=== PATIENT | female | born 1935 | race African-American/Black ===

== ENCOUNTER → 2017-02-05 | Outpatient (CLI) | payer MEDICAID, MEDICARE ==
[~2017-02-05] VITALS: Ht 149.9 cm; Wt 62.6 kg
[~2017-02-05] MED LIST: REGADENOSON 0.4 MG/5 ML DISP.SYRIN. IV ONE
--- NOTE | 2017-02-05 14:08 | RAD ---
APPROVED REPORT Test Type: Pharmacological Stress Nurse/Tech: Marissa Bloom R.N. Test Indications: chest pain Cardiac History: Family history, Diabetes, Hypertension Medications: See Electronic Medical Record Medical History: See Electronic Medical Record Resting ECG: NSR Resting Heart Rate: 71 bpm Resting Blood Pressure: 149/62mmHg Pretest Chest Pain: No chest pain Nurse/Tech Notes Murmur, lungs sound clear Consent: The procedure was explained to the patient in lay terms. Informed consent was witnessed. Valentin eout was entered into [employer]. History and Stress Test performed by Marissa Bloom R.N. Pharm. Details Pharmacologic stress testing was performed using 0.4mg per 5ml of regadenoson given intravenously ove r 7-10 seconds. Stress Symptoms Dyspnea POST EXERCISE Reason for Termination: Infusion complete Max HR: 86 bpm Max Blood Pressure: 127/54mmHg Blood Pressure response to exercise: Normal blood pressure response during stress. Chest Pain: No. Arrhythmia: No. ST Change: No. INTERPRETATION Stress EKG Conclusion: Baseline EKG showed sinus rhythm. No ischemic changes at peak stress. No arr hythmias. Imaging Protocol IMAGE PROTOCOL: Rest Tc-99m/stress Tc-99m 1 day Rest: Stress: Viability: Radiopharm.Tc99m [id number] Sestamibi Xbog20xHi 32mCi Img Date 02/05/2017 02/05/2017 Inj-Img [id number]. 60min. Rest Admin Site:IV - Left AntecubitalAdministrator:RT Paola (R)(N) Stress Admin Site: IV - Left AntecubitalAdministrator: RT Paola (R)(N) STRESS DATA End Diast. Vol.52.0mlAv. Heart Rate79.0bpm End Syst. Vol.4.0mlCO Index BSA0.0L/min Myocardial Mass97.0gEject. Equsukut68.0% Stress Rates Pk. Fill Rate4.36EDV/secLVtime Pk. Fill 201.41msec Pk. Empty Rate5.36ESV/secLVtime Pk. Guxob485.42msec 09/04 Pk. Fill1.28EDV/sec Stress Scores Regional WT0.00Summed WT0.00 Regional WM0.00Summed WM0.00 Study quality was good. Left Ventricular size was Normal at Rest and Stress. Lung uptake was Normal. Left Ventricular ejection fraction is >80%. The rest and stress images show normal perfusion, normal contraction and thickening. LV Perf. Quant 17 Seg. SSS0.00 17 Seg. SRS0.00 17 Seg. SDS0.00 Stress Defect Extent (% LAD)0.00Rest Defect Extent (% LAD)0.00Rev. Defect Extent (% LAD)0.00 Stress Defect Extent (% LCX) 0.00Rest Defect Extent (% LCX)0.00Rev. Defect Extent (% LCX)0.00 Stress Defect Extent (% RCA)0.00Rest Defect Extent (% RCA)0.00Rev. Defect Extent (% RCA)0.00 Stress Defect Extent (% WM)0.00Rest Defect Extent (% WM)0.00Rev. Defect Extent (% WM)0.00 Conclusion 1. Regadenoson cardioisotope stress test did not show any evidence of ischemia or infarct. 2. Normal left ventricular systolic function with ejection fraction calculated at >80%. 3. Low risk for cardiac events.
== END | disposition home or self-care (01) ==
LOC: NM 08:00
PROVIDERS: ATTEND Internal Medicine Cardiovascular Disease
DX: R07.9 Chest pain, unspecified (principal); J45.909 Unspecified asthma, uncomplicated; Z86.79 Personal history of other diseases of the circulatory system; I10 Essential (primary) hypertension; E11.9 Type 2 diabetes mellitus without complications
CPT/HCPCS: 78452; 93017; 96374; 96375; 96376; A9500; J2785

== ENCOUNTER 2017-07-21 20:35 | Inpatient (IN) | payer MEDICARE, MEDICAID ==
[~2017-07-21] VITALS: Ht 149.9 cm; Wt 55.8 kg
[2017-07-21] MEDS ORDERED: HYDROmorphone 2 MG/ML VIAL IV/SQ PRN (21:30)
[2017-07-21] MEDS ORDERED: ONDANSETRON PF 4 MG/2 ML VIAL. IV ONE (21:30)
[2017-07-21] MEDS ORDERED: IV NORMAL SALINE 1000ML BAG 1,000 ML IV SCH (21:30)
[2017-07-21] MEDS ORDERED: 0.9 % SODIUM CHLORIDE 10 ML DISP.SYRIN. IV PRN (21:30)
[2017-07-21 21:43] LABS: BILIRUBIN,URINE NEGATIVE (NEG); GLUCOSE,URINE NEGATIVE (NEG); NITRITE,URINE NEGATIVE (NEG); PROTEIN,URINE NEGATIVE (NEG-TRACE); UROBILINOGEN,URINE 0.2 mg/dL (0.2 mg/dL)
[2017-07-21 21:45] LABS: BASO % 0 % (0-3); EOS % 0 % (0-3); HEMATOCRIT 31.8 % (36.0-47.0); HEMOGLOBIN 10.3 g/dL (12.0-15.5); LYMPH # 0.8 x10^3/uL (1.0-4.8); LYMPH % 5 % (24-48); MEAN CORPUSCULAR HEMOGLOBIN 30 pg (25-35); MEAN CORPUSCULAR HGB CONC 32 g/dL (31-37); MEAN CORPUSCULAR VOLUME 92 fL (79-100); MONO % 5 % (0-9); NEUT % 90 % (31-73); PLATELET COUNT 241 x10^3/uL (140-400); RED BLOOD COUNT 3.46 x10^6/uL (3.50-5.40); RED CELL DISTRIBUTION WIDTH 14.5 % (11.5-14.5); WHITE BLOOD COUNT 15.4 x10^3/uL (4.0-11.0)
[2017-07-21 21:50] LABS: BACTERIA,URINE FEW /HPF (0-FEW); RBC,URINE RARE /HPF (0-2); SQUAMOUS EPITHELIAL CELL,UR MANY /LPF
[2017-07-21 22:00] LABS: % EOS 1 % (0-5)
[2017-07-21 22:02] LABS: CALCIUM 9.1 mg/dL (8.5-10.1); CREATININE 1.1 mg/dL (0.6-1.0); GFR 57.8; POTASSIUM 4.2 mmol/L (3.5-5.1)
[2017-07-21 22:03] LABS: PLT ESTIMATE ADEQUATE (ADEQUATE); TOXIC GRANULATION MOD; TOXIC VACUOLATION SLIGHT
[2017-07-21 22:08] LABS: ALBUMIN 3.2 g/dL (3.4-5.0); DIRECT BILIRUBIN 0.1 mg/dL (0.0-0.2); TOTAL BILIRUBIN 0.4 mg/dL (0.2-1.0); TOTAL PROTEIN 7.3 g/dL (6.4-8.2)
[2017-07-21 22:16] LABS: CREATINE KINASE 57 U/L (26-192)
[2017-07-21 22:17] LABS: CKMB MASS < 0.5 ng/mL (0.0-3.6)
--- NOTE | 2017-07-21 22:24 | RAD ---
Indication: Left lower quadrant pain. Technique: Axial images and coronal and sagittal reformatted images are provided. No comparison is available. One or more of the following individualized dose reduction techniques were utilized for this examination: 1. Automated exposure control 2. Adjustment of the mA and/or kV according to patient size 3. Use of iterative reconstruction technique Findings: There is atelectasis in the lung bases. There is no pleural effusion. The heart is not enlarged. Coronary artery calcifications are noted. Small hiatal hernia is noted. Solid organ evaluation is limited without contrast. Liver is unremarkable. Gallbladder is absent. Spleen is not enlarged. Uterus and adrenals are unremarkable. There is no urolithiasis. There is atheromatous disease in the abdominal aorta without aneurysm. There appear to be 2 peripherally calcified splenic artery aneurysms about a centimeter in size each. Lack of oral contrast limits evaluation of bowel. There is no small bowel obstruction or mural thickening. Normal appendix is noted. There is mural thickening in the rectum with adjacent stranding. Remainder of the colon is grossly unremarkable allowing for limitations of no IV or oral contrast. There is no abscess or free air. There is marked bladder distention. There is no adnexal mass. There is no free pelvic fluid. There are mild degenerative changes in the spine. There is stranding of the gluteal fat bilaterally but no definite abscess on noncontrast imaging. IMPRESSION: 1. Mural thickening in the rectum may be secondary to proctitis. Follow-up to exclude neoplastic etiology is recommended. There is no abscess or free air. There is no definite fistula on noncontrast imaging. 2. Marked bladder distention. Electronically signed by: Phoenix Smith MD (07/21/2017 10:20 PM) [facility]
[2017-07-21] MEDS ORDERED: fentaNYL PF VIAL 100 MCG/2 ML VIAL IV PRN (22:45)
[2017-07-21] MEDS ORDERED: ACETAMINOPHEN 325 MG TABLET. PO PRN (22:45)
[2017-07-21] MEDS ORDERED: ONDANSETRON PF 4 MG/2 ML VIAL. IV PRN (22:45)
--- NOTE | 2017-07-21 22:45 | PHYS DOC ---
Past Medical History Past Medical History: Asthma, Diabetes-Type II, Hypertension, Other Additional Past Medical Histor: OSTEOPOROSIS Past Surgical History: Cholecystectomy Alcohol Use: None Drug Use: None Adult General Chief Complaint Chief Complaint: ABDOMINAL PAIN [facility] HPI This Is a pleasant 82-year-old female who is presently under treatment for acute sinusitis and bronchitis taking antibiotics who presents with constipation that began several days ago. She actually used several fleets enemas nor to have a bowel movement today to check was 3 hours in duration. At one point in time patient began having some lower abdominal pain is now resolved but she had some chills with her symptoms to include subjective fevers with no documented fevers no nausea no vomiting no diarrhea. After having a bowel movement she feels markedly improved but did have a bout of markedly riders and chills. Patient denies any chest pain, shortness of breath or other symptoms at this time. She's not having residual abdominal pain. But she is some residual rectal discomfort. Patient is on doxycycline orally for her sinusitis and bronchitis as prescribed by her primary care doctor Dr. Fadumo Olea. Review of Systems Review of Systems Constitutional: Denies fever or chills [] Eyes: Denies change in visual acuity, redness, or eye pain [] HENT: Denies nasal congestion or sore throat [] Respiratory: Denies cough or shortness of breath [] Cardiovascular: No additional information not addressed in HPI [] GI: Did complain of abdominal pain and constipation patient denies any nausea, vomiting or diarrhea. : Denies dysuria or hematuria [] Musculoskeletal: Denies back pain or patient is complaining of mild left hip pain. She says usually occurs when she wears high heels she was to islam. Integument: Denies rash or skin lesions [] Neurologic: Denies headache, focal weakness or sensory changes [] Endocrine: Denies polyuria or polydipsia [] All other systems were reviewed and found to be within normal limits, except as documented in this note. Current Medications Current Medications Current Medications Medications (Trade) Dose Ordered Sig/José Miguel Start Time Stop Time Status Last Admin Dose Admin Hydromorphone HCl (Dilaudid) 0.5 mg PRN Q15MIN PRN 07/21/17 21:30 07/22/17 21:29 07/21/17 21:50 0.5 MG Ondansetron HCl (Zofran) 4 mg 1X ONCE 07/21/17 21:30 07/21/17 21:36 DC 07/21/17 21:50 4 MG Sodium Chloride (Normal Saline Flush) 10 ml QSHIFT PRN 07/21/17 21:30 07/21/17 21:50 10 ML Allergies Allergies Allergies Coded Allergies Type Severity Reaction Last Updated Verified Sulfa (Sulfonamide Antibiotics) Allergy Unknown 02/05/17 Yes cheese Allergy Unknown 02/05/17 Yes walnut Allergy Unknown 02/05/17 Yes Physical Exam Physical Exam Patient presents with vital signs as recorded on the chart demonstrate mild hypertension. Constitutional: Well developed, well nourished, no acute distress, non-toxic appearance. [] HENT: Normocephalic, atraumatic, bilateral external ears normal, oropharynx moist, no oral exudates, nose normal. [] Eyes: PERRLA, EOMI, conjunctiva normal, no discharge. [] Neck: Normal range of motion, no tenderness, supple, no stridor. [] Cardiovascular:Heart rate regular rhythm, no murmur [] Lungs & Thorax: Bilateral breath sounds clear to auscultation [] Abdomen: Bowel sounds normal, soft, no tenderness, no masses, no pulsatile masses. No guarding rebound or organomegaly. Specifically no tenderness except mildly in the left lower quadrant. Skin: Warm, dry, no erythema, no rash. [] Back: No tenderness, no CVA tenderness. [] Extremities: No tenderness, no cyanosis, no clubbing, ROM intact, no edema. No slight tenderness to palpation to the superior iliac crest and spine of the left hip Neurologic: Alert and oriented X 3, normal motor function, normal sensory function, no focal deficits noted. [] Psychologic: Affect normal, judgement normal, mood normal. [] Current Patient Data Vital Signs Vital Signs Date Time Temp Pulse Resp B/P (MAP) Pulse Ox O2 Delivery O2 Flow Rate FiO2 07/21/17 20:44 98.8 90 18 150/67 (94) 96 Room Air 98.8 Lab Values Laboratory Tests Test 07/21/17 20:45 07/21/17 21:40 Urine Collection Type Unknown Urine Color Yellow Urine Clarity Clear Urine pH 6.0 Urine Specific Ramsey 1.010 Urine Protein Negative mg/dL (NEG-TRACE) Urine Glucose (UA) Negative mg/dL (NEG) Urine Ketones (Stick) Negative mg/dL (NEG) Urine Blood Small (NEG) Urine Nitrite Negative (NEG) Urine Bilirubin Negative (NEG) Urine Urobilinogen Dipstick 0.2 mg/dL (0.2 mg/dL) Urine Leukocyte Esterase Small (NEG) Urine RBC Rare /HPF (0-2) Urine WBC 1-4 /HPF (0-4) Urine Squamous Epithelial Cells Many /LPF Urine Bacteria Few /HPF (0-FEW) Urine Mucus Slight /LPF White Blood Count 15.4 x10^3/uL (4.0-11.0) H Red Blood Count 3.46 x10^6/uL (3.50-5.40) L Hemoglobin 10.3 g/dL (12.0-15.5) L Hematocrit 31.8 % (36.0-47.0) L Mean Corpuscular Volume 92 fL (79-100) Mean Corpuscular Hemoglobin 30 pg (25-35) Mean Corpuscular Hemoglobin Concent 32 g/dL (31-37) Red Cell Distribution Width 14.5 % (11.5-14.5) Platelet Count 241 x10^3/uL (140-400) Neutrophils (%) (Auto) 90 % (31-73) H Lymphocytes (%) (Auto) 5 % (24-48) L Monocytes (%) (Auto) 5 % (0-9) Eosinophils (%) (Auto) 0 % (0-3) Basophils (%) (Auto) 0 % (0-3) Neutrophils # (Auto) 13.8 x10^3uL (1.8-7.7) H Lymphocytes # (Auto) 0.8 x10^3/uL (1.0-4.8) L Monocytes # (Auto) 0.8 x10^3/uL (0.0-1.1) Eosinophils # (Auto) 0.0 x10^3/uL (0.0-0.7) Basophils # (Auto) 0.0 x10^3/uL (0.0-0.2) Segmented Neutrophils % 72 % (35-66) H Band Neutrophils % 18 % (0-9) H Lymphocytes % 7 % (24-48) L Monocytes % 2 % (0-10) Eosinophils % 1 % (0-5) Toxic Granulation Mod Toxic Vacuolation Slight Platelet Estimate Adequate (ADEQUATE) Sodium Level 137 mmol/L (136-145) Potassium Level 4.2 mmol/L (3.5-5.1) Chloride Level 104 mmol/L (98-107) Carbon Dioxide Level 26 mmol/L (21-32) Anion Gap 7 (6-14) Blood Urea Nitrogen 21 mg/dL (7-20) H Creatinine 1.1 mg/dL (0.6-1.0) H Estimated GFR (Cockcroft-Gault) 57.8 Glucose Level 173 mg/dL (70-99) H Calcium Level 9.1 mg/dL (8.5-10.1) Total Bilirubin 0.4 mg/dL (0.2-1.0) Direct Bilirubin 0.1 mg/dL (0.0-0.2) Aspartate Amino Transferase (AST) 16 U/L (15-37) Alanine Aminotransferase (ALT) 13 U/L (14-59) L Alkaline Phosphatase 107 U/L (46-116) Troponin I Quantitative < 0.017 ng/mL (0.000-0.055) Total Protein 7.3 g/dL (6.4-8.2) Albumin 3.2 g/dL (3.4-5.0) L Lipase 47 U/L (73-393) L Laboratory Tests 07/21/17 21:40 Laboratory Tests 07/21/17 21:40 EKG EKG []EKG timed 9:40 PM read by me 07/21/2017 demonstrates a heart rate of 82 sinus rhythm with P waves and QRS HI interval is normal at 140, QRS is normal at 70, QTC is 421 which is normal, patient is no ST segment or T-wave changes consistent with acute cord ischemia there is some mild T-wave flattening in the lateral leads otherwise normal. Radiology/Procedures Radiology/Procedures [] [facility] [address] [place], [place] [id number] IMAGING REPORT Signed PATIENT: TANJA FINE ACCOUNT: [id number] : 1935 LOCATION: ER AGE: 82 SEX: F EXAM STATUS: PRE ER ORD. PHYSICIAN: ANYA TEJADA MD REASON: left lower quadrant abdominal pain PROCEDURE: CT ABDOMEN PELVIS WO CONTRAST Indication: Left lower quadrant pain. Technique: Axial images and coronal and sagittal reformatted images are provided. No comparison is available. One or more of the following individualized dose reduction techniques were utilized for this examination: 1. Automated exposure control 2. Adjustment of the mA and/or kV according to patient size 3. Use of iterative reconstruction technique Findings: There is atelectasis in the lung bases. There is no pleural effusion. The heart is not enlarged. Coronary artery calcifications are noted. Small hiatal hernia is noted. Solid organ evaluation is limited without contrast. Liver is unremarkable. Gallbladder is absent. Spleen is not enlarged. Uterus and adrenals are unremarkable. There is no urolithiasis. There is atheromatous disease in the abdominal aorta without aneurysm. There appear to be 2 peripherally calcified splenic artery aneurysms about a centimeter in size each. Lack of oral contrast limits evaluation of bowel. There is no small bowel obstruction or mural thickening. Normal appendix is noted. There is mural thickening in the rectum with adjacent stranding. Remainder of the colon is grossly unremarkable allowing for limitations of no IV or oral contrast. There is no abscess or free air. There is marked bladder distention. There is no adnexal mass. There is no free pelvic fluid. There are mild degenerative changes in the spine. There is stranding of the gluteal fat bilaterally but no definite abscess on noncontrast imaging. IMPRESSION: 1. Mural thickening in the rectum may be secondary to proctitis. Follow-up to exclude neoplastic etiology is recommended. There is no abscess or free air. There is no definite fistula on noncontrast imaging. 2. Marked bladder distention. Electronically signed by: Ryan Smith MD (07/21/2017 10:20 PM) [facility] DICTATED and SIGNED BY: RYAN SMITH MD DATE: 07/21/170 CC: ANYA TEJADA MD; FADUMO OLEA MD ~ Course & Med Decision Making Course & Med Decision Making Pertinent Labs and Imaging studies reviewed. (See chart for details) []Presents with left lower quadrant abdominal pain and difficulty with constipation. Although she admits that she has not been taking her stool softening medications this particular hard stools difficult to release. She did have some chills and subjective fevers with this last bowel movement. My concern is possible diverticulitis or some other intra-abdominal infection. She is oriented been on antibiotics for her sinuses for last several weeks. At approximate 10:15 PM patient's white blood cell count elevated at 15,000 Patient's urinalysis demonstrate some signs of contamination Laboratory Tests Test 07/21/17 20:45 07/21/17 21:40 Urine Collection Type Unknown Urine Color Yellow Urine Clarity Clear Urine pH 6.0 Urine Specific Ramsey 1.010 Urine Protein Negative mg/dL (NEG-TRACE) Urine Glucose (UA) Negative mg/dL (NEG) Urine Ketones (Stick) Negative mg/dL (NEG) Urine Blood Small (NEG) Urine Nitrite Negative (NEG) Urine Bilirubin Negative (NEG) Urine Urobilinogen Dipstick 0.2 mg/dL (0.2 mg/dL) Urine Leukocyte Esterase Small (NEG) Urine RBC Rare /HPF (0-2) Urine WBC 1-4 /HPF (0-4) Urine Squamous Epithelial Cells Many /LPF Urine Bacteria Few /HPF (0-FEW) Urine Mucus Slight /LPF White Blood Count 15.4 x10^3/uL (4.0-11.0) Red Blood Count 3.46 x10^6/uL (3.50-5.40) Hemoglobin 10.3 g/dL (12.0-15.5) Hematocrit 31.8 % (36.0-47.0) Mean Corpuscular Volume 92 fL (79-100) Mean Corpuscular Hemoglobin 30 pg (25-35) Mean Corpuscular Hemoglobin Concent 32 g/dL (31-37) Red Cell Distribution Width 14.5 % (11.5-14.5) Platelet Count 241 x10^3/uL (140-400) Neutrophils (%) (Auto) 90 % (31-73) Lymphocytes (%) (Auto) 5 % (24-48) Monocytes (%) (Auto) 5 % (0-9) Eosinophils (%) (Auto) 0 % (0-3) Basophils (%) (Auto) 0 % (0-3) Neutrophils # (Auto) 13.8 x10^3uL (1.8-7.7) Lymphocytes # (Auto) 0.8 x10^3/uL (1.0-4.8) Monocytes # (Auto) 0.8 x10^3/uL (0.0-1.1) Eosinophils # (Auto) 0.0 x10^3/uL (0.0-0.7) Basophils # (Auto) 0.0 x10^3/uL (0.0-0.2) Segmented Neutrophils % 72 % (35-66) Band Neutrophils % 18 % (0-9) Lymphocytes % 7 % (24-48) Monocytes % 2 % (0-10) Eosinophils % 1 % (0-5) Toxic Granulation Mod Toxic Vacuolation Slight Platelet Estimate Adequate (ADEQUATE) Sodium Level 137 mmol/L (136-145) Chloride Level 104 mmol/L (98-107) Carbon Dioxide Level 26 mmol/L (21-32) Anion Gap 7 (6-14) Blood Urea Nitrogen 21 mg/dL (7-20) Estimated GFR (Cockcroft-Gault) 57.8 Glucose Level 173 mg/dL (70-99) Calcium Level 9.1 mg/dL (8.5-10.1) Total Bilirubin 0.4 mg/dL (0.2-1.0) Direct Bilirubin 0.1 mg/dL (0.0-0.2) Aspartate Amino Transf (AST/SGOT) 16 U/L (15-37) Alkaline Phosphatase 107 U/L (46-116) Creatine Kinase 57 U/L (26-192) Creatine Kinase MB (Mass) < 0.5 ng/mL (0.0-3.6) Creatine Kinase MB Relative Index 0.9 % (0-4) Troponin I Quantitative < 0.017 ng/mL (0.000-0.055) Total Protein 7.3 g/dL (6.4-8.2) Albumin 3.2 g/dL (3.4-5.0) Lipase 47 U/L (73-393) Patient's CMP is otherwise unremarkable Patient tells me that their symptoms given during CC are improved. We reviewed labs and radiology reports with patient and any family at bedside. Return as a CT scan did demonstrate some signs of prostatitis and because of her chills although she's not demonstrate signs of Sirs at this time patient be admitted to the hospital for IV antibiotics to ensure that she cannot bowel movements without issue. We ordered and given Cipro and Flagyl for suspected inflammatory infectious cause of her proctitis Outdoor Studies Professor note: Dr. Roca Outdoor Studies Professor called at of the service: 10:40 PM Consult called back at 10:40 pm Discussed the case I presented and they agreed with admission. Time of acceptance 10:40 Kacey Disclaimer Kacey Disclaimer This electronic medical record was generated, in whole or in part, using a voice recognition dictation system. Departure Departure Impression: Primary Impression: Proctitis Additional Impression: Abdominal pain Disposition: 09 ADMITTED INPATIENT Admitting Physician: Other Condition: GUARDED Referrals: FADUMO OLEA MD (PCP) Problem Qualifiers ANYA TEJADA MD Jul 21, 2017 22:45
[2017-07-21] MEDS ORDERED: CIPROFLOXACIN 400MG PREMIX 200 ML IV ONE (23:00)
[2017-07-21] MEDS: IV NORMAL SALINE 1000ML BAG 1,000 ML IV SCH (23:25)
[2017-07-22] VITALS (7 sets, daily range): BP systolic 94–137; BP diastolic 41–79
[2017-07-22] MEDS ORDERED: INSU100I17 SQ (00:57)
[2017-07-22] MEDS ORDERED: LISI10TA2 PO (00:57)
[2017-07-22] MEDS ORDERED: PROVENTIL HFA6.7 GM IH (00:57)
[2017-07-22] MEDS ORDERED: ASPI-482 PO (00:57)
[2017-07-22] MEDS ORDERED: INSU100I13 SQ (00:57)
--- NOTE | 2017-07-22 06:09 | EKG ---
[facility] [address] [place] [id number] Test Date: 2017-07-21 Test Time: 21:40:29 Pat Name: TANJA FINE Department: Room: 526 1 Gender: F [employer] Docent: : 1935 Requested By: ANYA TEJADA Order Number: [id number] Reading MD: Delvin Best MD Measurements Intervals [place] Rate: 82 P: 48 SC: 140 QRS: 45 QRSD: 70 T: 82 QT: 358 QTc: 421 Interpretive Statements SINUS RHYTHM Electronically Signed On 07-23-2017 16:37:47 STRAND [employer] by Delvin Best MD
[2017-07-22] MEDS: CIPROFLOXACIN 400MG PREMIX 200 ML IV SCH ×2 (08:19→21:25)
[2017-07-22] MEDS ORDERED: MAGNESIUM HYDROXIDE 2,400 MG/30 ML ORAL.SUSP. PO PRN (13:30)
[2017-07-22] MEDS ORDERED: DEXTROSE 50% 25 GM / 50ML DISP.SYRIN. IV PRN (13:30)
[2017-07-22] MEDS ORDERED: NON FORMULARY ITEM (Albuterol Sulfate (Proventil Hfa Inhaler) 1 PUFF) IH PRN (13:30)
[2017-07-22] MEDS ORDERED: PHENYLEPHRINE SUPP.RECT. PR PRN (13:30)
[2017-07-22] MEDS: IV NORMAL SALINE 1000ML BAG 1,000 ML IV SCH (13:37)
[2017-07-22] MEDS: LISINOPRIL 10 MG TABLET PO SCH (13:41)
[2017-07-22] MEDS ORDERED: ALBUTEROL SULFATE 2.5 MG/3 ML NEBU. NEB PRN (13:45)
--- NOTE | 2017-07-22 14:08 | PDOC1 ---
History and Physical Date of Admission Date of Admission DATE: 07/22/17 TIME: 14:02 Identification/Chief Complaint Chief Complaint constipation Problems: Source Source: Caregiver, Chart review, Patient History of Present Illness History of Present Illness 82 y.o AA female, PCP Dr. John Jarvis, comes in bec of rectal pain, and constipation,. L:Ast decent BM was 3-4 days ago, yesterday was hard, She sat in potty for 3 hrs, HEr last cscope routine was aT age 42 and "normal". NO weight loss, fevers. or fam hx colon CA,. CT scan shows proctitis and some inflammation colon hence admitted with iV abx. I consulted GS and GI. She is trying to eat lunch, SHe is currently undergoing tx for URI sxs with PO doxy by her PCP, WBC 15,. no fevers, CT as above. She does sound nasal Past Medical History Cardiovascular: HTN, Hyperlipidemia Endocrine: Diabetes Past Surgical History Past Surgical History: No pertinent history Family History Family History: No Significant Social History Smoke: No ALCOHOL: none Drugs: None Current Problem List Problem List Problems Medical Problems: (1) Abdominal pain Status: Acute (2) Proctitis Status: Acute Problems: Current Medications Current Medications Current Medications Hydromorphone HCl (Dilaudid) 0.5 mg PRN Q15MIN PRN IV/SQ PAIN GREATER THAN 3/ 10 Last administered on 07/21/17 21:50; Start 07/21/17 at 21:30; Stop at 21:29 Sodium Chloride 1,000 ml @ 1,000 mls/hr Q1H IV Last administered on 21:49; Start 07/21/17 at 21:30; Stop 07/21/17 at 22:29; Status DC Sodium Chloride (Normal Saline Flush) 10 ml QSHIFT PRN IV AFTER MEDS AND BLOOD DRAWS Last administered on 07/21/17 21:50; Start 07/21/17 at 21:30 Ondansetron HCl (Zofran) 4 mg 1X ONCE IV Last administered on 07/21/17 21:50 ; Start 07/21/17 at 21:30; Stop 07/21/17 at 21:36; Status DC Ciprofloxacin/ Dextrose 200 ml @ 200 mls/hr Q12HR IV Last administered on 08:19; Start 07/22/17 at 09:00 Metronidazole 100 ml @ 100 mls/hr Q8HRS IV Last administered on 07/22/17 13: 29; Start 07/22/17 at 06:00 Ondansetron HCl (Zofran) 4 mg PRN Q8HRS PRN IV NAUSEA/VOMITING; Start at 22:45; Stop 07/22/17 at 22:44 Fentanyl Citrate (Fentanyl 2ml Vial) 50 mcg PRN Q2HR PRN IV PAIN; Start at 22:45; Stop 07/22/17 at 22:44 Sodium Chloride 1,000 ml @ 80 mls/hr [id number] IV Last administered on 13:37; Start 07/21/17 at 22:45; Stop 07/22/17 at 22:44 Acetaminophen (Tylenol) 650 mg PRN Q4HRS PRN PO FEVER Last administered on 08:28; Start 07/21/17 at 22:45; Stop 07/22/17 at 22:44 Ciprofloxacin/ Dextrose 200 ml @ 200 mls/hr ONCE ONCE IV Last administered on 07/21/17 23:25; Start 07/21/17 at 23:00; Stop 07/21/17 at 23:59; Status DC Metronidazole 100 ml @ 100 mls/hr ONCE ONCE IV Last administered on 01:08; Start 07/22/17 at 00:00; Stop 07/22/17 at 00:59; Status DC Aspirin (Ecotrin) 81 mg DAILY PO ; Start 07/22/17 at 14:00 Lisinopril (Prinivil) 10 mg DAILY PO ; Start 07/22/17 at 14:00 Non-Formulary Medication 1 puff PRN Q4HRS PRN IH FOR ASTHMA; Start 07/22/17 at 13:30; Status UNV Insulin Detemir (Levemir) 35 units QHS SQ ; Start 07/22/17 at 21:00 Insulin Aspart (NovoLOG) 0-9 UNITS TIDWMEALS SQ ; Start 07/22/17 at 17:00 Dextrose (Dextrose 50%-Water Syringe) 12.5 gm PRN Q15MIN PRN IV SEE COMMENTS; Start 07/22/17 at 13:30 Doxycycline Hyclate (Vibra-Tab) 100 mg BID PO ; Start 07/22/17 at 14:00 Phenylephrine HCl (Hemorrhoidal) 1 supp PRN Q12HR PRN [place] RECTAL PAIN; Start at 13:30 Docusate Sodium (Colace) 100 mg BID PO ; Start 07/22/17 at 14:00 Polyethylene Glycol (miraLAX PACKET) 17 gm DAILY PO ; Start 07/22/17 at 14:00 Magnesium Hydroxide (Milk Of Magnesia) 2,400 mg PRN DAILY PRN PO CONSTIPATION; Start 07/22/17 at 13:30 Albuterol Sulfate (Ventolin Neb Soln) 2.5 mg PRN Q4HRS PRN NEB SHORTNESS OF BREATH; Start 07/22/17 at 13:45 Active Scripts Active Reported Proventil Hfa Inhaler (Albuterol Sulfate) 6.7 Gm Hfa.aer.ad 1 Puff IH PRN Q4HRS PRN Lantus Solostar (Insulin Glargine,Hum.rec.anlog) 100 Unit/1 Ml Insuln.pen 35 Unit SQ QHS Novolog Flexpen (Insulin Aspart) 100 Unit/1 Ml Insuln.pen 1 Unit SQ Lisinopril 10 Mg Tablet 1 Tab PO DAILY Aspir 81 (Aspirin) 81 Mg Tablet.dr 1 Tab PO DAILY Allergies Allergies: Coded Allergies: Sulfa (Sulfonamide Antibiotics) (Verified Allergy, Unknown, 02/05/17) cheese (Verified Allergy, Unknown, 02/05/17) walnut (Verified Allergy, Unknown, 02/05/17) ROS Review of System all 14 pt reviewed, per HPI, all else is neg Physical Exam General: Alert, Oriented X3, Cooperative, No acute distress HEENT: Atraumatic, PERRLA, EOMI Lungs: Clear to auscultation, Normal air movement Heart: S1S2, RRR, no thrills, no rubs, no gallops, no murmurs Cardiovascular: S1, S2 Breasts: Normal, Rt breast nml w/o mass, Lt breast nml w/o mass, Nipples normal Abdomen: Normal bowel sounds, Soft, No tenderness, No hepatosplenomegaly, No masses Rectal Exam: not examined, other (external hemorrhouids) Extremities: No clubbing, No cyanosis, No edema, Normal pulses, No tenderness/ swelling Skin: No rashes, No breakdown, No significant lesion Vitals Vitals Vital Signs Date Time Temp Pulse Resp B/P (MAP) Pulse Ox O2 Delivery O2 Flow Rate FiO2 07/22/17 13:41 73 97/41 07/22/17 11:00 98.1 18 95 Room Air 98.1 07/21/17 23:48 2.0 Labs Labs Laboratory Tests Test 07/21/17 20:45 07/21/17 21:40 07/21/17 23:20 07/22/17 07:21 Urine Collection Type Unknown Urine Color Yellow Urine Clarity Clear Urine pH 6.0 Urine Specific [place] 1.010 Urine Protein Negative mg/dL (NEG-TRACE) Urine Glucose (UA) Negative mg/dL (NEG) Urine Ketones (Stick) Negative mg/dL (NEG) Urine Blood Small (NEG) Urine Nitrite Negative (NEG) Urine Bilirubin Negative (NEG) Urine Urobilinogen Dipstick 0.2 mg/dL (0.2 mg/dL) Urine Leukocyte Esterase Small (NEG) Urine RBC Rare /HPF (0-2) Urine WBC 1-4 /HPF (0-4) Urine Squamous Epithelial Cells Many /LPF Urine Bacteria Few /HPF (0-FEW) Urine Mucus Slight /LPF White Blood Count 15.4 x10^3/uL (4.0-11.0) Red Blood Count 3.46 x10^6/uL (3.50-5.40) Hemoglobin 10.3 g/dL (12.0-15.5) Hematocrit 31.8 % (36.0-47.0) Mean Corpuscular Volume 92 fL (79-100) Mean Corpuscular Hemoglobin 30 pg (25-35) Mean Corpuscular Hemoglobin Concent 32 g/dL (31-37) Red Cell Distribution Width 14.5 % (11.5-14.5) Platelet Count 241 x10^3/uL (140-400) Neutrophils (%) (Auto) 90 % (31-73) Lymphocytes (%) (Auto) 5 % (24-48) Monocytes (%) (Auto) 5 % (0-9) Eosinophils (%) (Auto) 0 % (0-3) Basophils (%) (Auto) 0 % (0-3) Neutrophils # (Auto) 13.8 x10^3uL (1.8-7.7) Lymphocytes # (Auto) 0.8 x10^3/uL (1.0-4.8) Monocytes # (Auto) 0.8 x10^3/uL (0.0-1.1) Eosinophils # (Auto) 0.0 x10^3/uL (0.0-0.7) Basophils # (Auto) 0.0 x10^3/uL (0.0-0.2) Segmented Neutrophils % 72 % (35-66) Band Neutrophils % 18 % (0-9) Lymphocytes % 7 % (24-48) Monocytes % 2 % (0-10) Eosinophils % 1 % (0-5) Toxic Granulation Mod Toxic Vacuolation Slight Platelet Estimate Adequate (ADEQUATE) Sodium Level 137 mmol/L (136-145) Potassium Level 4.2 mmol/L (3.5-5.1) Chloride Level 104 mmol/L (98-107) Carbon Dioxide Level 26 mmol/L (21-32) Anion Gap 7 (6-14) Blood Urea Nitrogen 21 mg/dL (7-20) Creatinine 1.1 mg/dL (0.6-1.0) Estimated GFR (Cockcroft-Gault) 57.8 Glucose Level 173 mg/dL (70-99) Calcium Level 9.1 mg/dL (8.5-10.1) Total Bilirubin 0.4 mg/dL (0.2-1.0) Direct Bilirubin 0.1 mg/dL (0.0-0.2) Aspartate Amino Transf (AST/SGOT) 16 U/L (15-37) Alanine Aminotransferase (ALT/SGPT) 13 U/L (14-59) Alkaline Phosphatase 107 U/L (46-116) Creatine Kinase 57 U/L (26-192) Creatine Kinase MB (Mass) < 0.5 ng/mL (0.0-3.6) Creatine Kinase MB Relative Index 0.9 % (0-4) Troponin I Quantitative < 0.017 ng/mL (0.000-0.055) Total Protein 7.3 g/dL (6.4-8.2) Albumin 3.2 g/dL (3.4-5.0) Lipase 47 U/L (73-393) Lactic Acid Level 0.8 mmol/L (0.4-2.0) Glucose (Fingerstick) 117 mg/dL (70-99) Test 07/22/17 10:56 Glucose (Fingerstick) 144 mg/dL (70-99) Laboratory Tests Test 07/21/17 20:45 07/21/17 21:40 07/21/17 23:20 07/22/17 07:21 Urine Collection Type Unknown Urine Color Yellow Urine Clarity Clear Urine pH 6.0 Urine Specific [place] 1.010 Urine Protein Negative mg/dL (NEG-TRACE) Urine Glucose (UA) Negative mg/dL (NEG) Urine Ketones (Stick) Negative mg/dL (NEG) Urine Blood Small (NEG) Urine Nitrite Negative (NEG) Urine Bilirubin Negative (NEG) Urine Urobilinogen Dipstick 0.2 mg/dL (0.2 mg/dL) Urine Leukocyte Esterase Small (NEG) Urine RBC Rare /HPF (0-2) Urine WBC 1-4 /HPF (0-4) Urine Squamous Epithelial Cells Many /LPF Urine Bacteria Few /HPF (0-FEW) Urine Mucus Slight /LPF White Blood Count 15.4 x10^3/uL (4.0-11.0) Red Blood Count 3.46 x10^6/uL (3.50-5.40) Hemoglobin 10.3 g/dL (12.0-15.5) Hematocrit 31.8 % (36.0-47.0) Mean Corpuscular Volume 92 fL (79-100) Mean Corpuscular Hemoglobin 30 pg (25-35) Mean Corpuscular Hemoglobin Concent 32 g/dL (31-37) Red Cell Distribution Width 14.5 % (11.5-14.5) Platelet Count 241 x10^3/uL (140-400) Neutrophils (%) (Auto) 90 % (31-73) Lymphocytes (%) (Auto) 5 % (24-48) Monocytes (%) (Auto) 5 % (0-9) Eosinophils (%) (Auto) 0 % (0-3) Basophils (%) (Auto) 0 % (0-3) Neutrophils # (Auto) 13.8 x10^3uL (1.8-7.7) Lymphocytes # (Auto) 0.8 x10^3/uL (1.0-4.8) Monocytes # (Auto) 0.8 x10^3/uL (0.0-1.1) Eosinophils # (Auto) 0.0 x10^3/uL (0.0-0.7) Basophils # (Auto) 0.0 x10^3/uL (0.0-0.2) Segmented Neutrophils % 72 % (35-66) Band Neutrophils % 18 % (0-9) Lymphocytes % 7 % (24-48) Monocytes % 2 % (0-10) Eosinophils % 1 % (0-5) Toxic Granulation Mod Toxic Vacuolation Slight Platelet Estimate Adequate (ADEQUATE) Sodium Level 137 mmol/L (136-145) Potassium Level 4.2 mmol/L (3.5-5.1) Chloride Level 104 mmol/L (98-107) Carbon Dioxide Level 26 mmol/L (21-32) Anion Gap 7 (6-14) Blood Urea Nitrogen 21 mg/dL (7-20) Creatinine 1.1 mg/dL (0.6-1.0) Estimated GFR (Cockcroft-Gault) 57.8 Glucose Level 173 mg/dL (70-99) Calcium Level 9.1 mg/dL (8.5-10.1) Total Bilirubin 0.4 mg/dL (0.2-1.0) Direct Bilirubin 0.1 mg/dL (0.0-0.2) Aspartate Amino Transf (AST/SGOT) 16 U/L (15-37) Alanine Aminotransferase (ALT/SGPT) 13 U/L (14-59) Alkaline Phosphatase 107 U/L (46-116) Creatine Kinase 57 U/L (26-192) Creatine Kinase MB (Mass) < 0.5 ng/mL (0.0-3.6) Creatine Kinase MB Relative Index 0.9 % (0-4) Troponin I Quantitative < 0.017 ng/mL (0.000-0.055) Total Protein 7.3 g/dL (6.4-8.2) Albumin 3.2 g/dL (3.4-5.0) Lipase 47 U/L (73-393) Lactic Acid Level 0.8 mmol/L (0.4-2.0) Glucose (Fingerstick) 117 mg/dL (70-99) Test 07/22/17 10:56 Glucose (Fingerstick) 144 mg/dL (70-99) VTE Prophylaxis Ordered VTE Prophylaxis Devices: Yes VTE Pharmacological Prophylaxi: Yes Assessment/Plan Assessment/Plan 1. Proctitis 2. Urinary distention 3. SIRS, leukocytosis, no sepsis 4. HTN DM2 insulin req - controlled 5. MIld PCM 6. Acute bronchitis PLAn: COnt PO doxy plus anaerobe coverage Admit 2 MN Add PT/OT SSI, resume home emds COnsult GI and gS dw GI H cream Ok for ADA diet Asks if they can have c scope done as inpt RAHAT BERNSTEIN MD Jul 22, 2017 14:08
--- NOTE | 2017-07-22 14:26 | PDOC2 ---
GI CONSULT Reason For Consult: Proctitis HPI: HPI: 82 y/o female admitted overnight through the ER. At home was on doxycycline from PCP for URI. H/o constipation controlled w/ stool softeners; she ran out of these. Last normal BM was 3-4 days ago, felt constipated yesterday w/ lower abd and rectal discomfort, tried Fleets and warm water enema, sat on the toilet for hours, passed hard stools. Associated w/ nausea and decreased appetite ( didn't eat yesterday, daughter says because she spent so much time on the toilet ). Has had chills/shakes which prompted ER evaluation. WBC 15.4, Hgb 10.8, BUN 21, Cr 1.1. CT A/P w/ mural thickening in the rectum w / stranding. On IV Cipro and Flagyl. Has Miralax, Colace, and MoM ordered. Daughter present, another daughter listening on the phone. Still feels a little nauseous, ate some toast and arriola for breakfast, still working on lunch. Abd and rectal discomfort has resolved. Denies reflux/heartburn, dysphagia, vomiting, weight loss, diarrhea, hematochezia, melena. S/p cholecystectomy for gallstones. No liver or pancreas history. No previous EGD. Recalls a colonoscopy ~40 years ago w/o sedation. Daily ASA, PRN ibuprofen for ALMANZA. Occasional pain associated w/ hemorrhoids. PMH: PMH: HTN, asthma, IDDM, osteoporosis, cholecystectomy FH: Family History: No pertinent hx Social History: Smoke: No ALCOHOL: none Drugs: None ROS: GEN: Denies fevers, chills, sweats HEENT: recent URI CV: Denies chest pain RESP: recent URI GI: Per HPI : Denies hematuria, dysuria ENDO: Denies weight changes NEURO: Denies confusion, dizziness MSK: Denies weakness, joint pain/swelling SKIN: Denies jaundice, pruritus Vitals: Vitals: Vital Signs Date Time Temp Pulse Resp B/P (MAP) Pulse Ox O2 Delivery O2 Flow Rate FiO2 07/22/17 13:41 73 97/41 07/22/17 11:00 98.1 18 95 Room Air 98.1 07/21/17 23:48 2.0 Labs: Labs: Laboratory Tests Test 07/21/17 20:45 11/19/17 21:40 07/21/17 23:20 07/22/17 07:21 Urine Collection Type Unknown Urine Color Yellow Urine Clarity Clear Urine pH 6.0 Urine Specific [place] 1.010 Urine Protein Negative mg/dL (NEG-TRACE) Urine Glucose (UA) Negative mg/dL (NEG) Urine Ketones (Stick) Negative mg/dL (NEG) Urine Blood Small (NEG) Urine Nitrite Negative (NEG) Urine Bilirubin Negative (NEG) Urine Urobilinogen Dipstick 0.2 mg/dL (0.2 mg/dL) Urine Leukocyte Esterase Small (NEG) Urine RBC Rare /HPF (0-2) Urine WBC 1-4 /HPF (0-4) Urine Squamous Epithelial Cells Many /LPF Urine Bacteria Few /HPF (0-FEW) Urine Mucus Slight /LPF White Blood Count 15.4 x10^3/uL (4.0-11.0) Red Blood Count 3.46 x10^6/uL (3.50-5.40) Hemoglobin 10.3 g/dL (12.0-15.5) Hematocrit 31.8 % (36.0-47.0) Mean Corpuscular Volume 92 fL (79-100) Mean Corpuscular Hemoglobin 30 pg (25-35) Mean Corpuscular Hemoglobin Concent 32 g/dL (31-37) Red Cell Distribution Width 14.5 % (11.5-14.5) Platelet Count 241 x10^3/uL (140-400) Neutrophils (%) (Auto) 90 % (31-73) Lymphocytes (%) (Auto) 5 % (24-48) Monocytes (%) (Auto) 5 % (0-9) Eosinophils (%) (Auto) 0 % (0-3) Basophils (%) (Auto) 0 % (0-3) Neutrophils # (Auto) 13.8 x10^3uL (1.8-7.7) Lymphocytes # (Auto) 0.8 x10^3/uL (1.0-4.8) Monocytes # (Auto) 0.8 x10^3/uL (0.0-1.1) Eosinophils # (Auto) 0.0 x10^3/uL (0.0-0.7) Basophils # (Auto) 0.0 x10^3/uL (0.0-0.2) Segmented Neutrophils % 72 % (35-66) Band Neutrophils % 18 % (0-9) Lymphocytes % 7 % (24-48) Monocytes % 2 % (0-10) Eosinophils % 1 % (0-5) Toxic Granulation Mod Toxic Vacuolation Slight Platelet Estimate Adequate (ADEQUATE) Sodium Level 137 mmol/L (136-145) Potassium Level 4.2 mmol/L (3.5-5.1) Chloride Level 104 mmol/L (98-107) Carbon Dioxide Level 26 mmol/L (21-32) Anion Gap 7 (6-14) Blood Urea Nitrogen 21 mg/dL (7-20) Creatinine 1.1 mg/dL (0.6-1.0) Estimated GFR (Cockcroft-Gault) 57.8 Glucose Level 173 mg/dL (70-99) Calcium Level 9.1 mg/dL (8.5-10.1) Total Bilirubin 0.4 mg/dL (0.2-1.0) Direct Bilirubin 0.1 mg/dL (0.0-0.2) Aspartate Amino Transf (AST/SGOT) 16 U/L (15-37) Alanine Aminotransferase (ALT/SGPT) 13 U/L (14-59) Alkaline Phosphatase 107 U/L (46-116) Creatine Kinase 57 U/L (26-192) Creatine Kinase MB (Mass) < 0.5 ng/mL (0.0-3.6) Creatine Kinase MB Relative Index 0.9 % (0-4) Troponin I Quantitative < 0.017 ng/mL (0.000-0.055) Total Protein 7.3 g/dL (6.4-8.2) Albumin 3.2 g/dL (3.4-5.0) Lipase 47 U/L (73-393) Lactic Acid Level 0.8 mmol/L (0.4-2.0) Glucose (Fingerstick) 117 mg/dL (70-99) Test 07/22/17 10:56 Glucose (Fingerstick) 144 mg/dL (70-99) Allergies: Coded Allergies: Sulfa (Sulfonamide Antibiotics) (Verified Allergy, Unknown, 02/05/17) cheese (Verified Allergy, Unknown, 02/05/17) walnut (Verified Allergy, Unknown, 02/05/17) Medications: Current Medications Medications (Trade) Dose Ordered Sig/José Miguel Route PRN Reason Start Time Stop Time Status Last Admin Dose Admin Hydromorphone HCl (Dilaudid) 0.5 mg PRN Q15MIN PRN IV/SQ PAIN GREATER THAN 3/10 07/21/17 21:30 07/22/17 21:29 07/21/17 21:50 Sodium Chloride 1,000 ml @ 1,000 mls/hr Q1H IV 07/21/17 21:30 07/21/17 22:29 DC 07/21/17 21:49 Sodium Chloride (Normal Saline Flush) 10 ml QSHIFT PRN IV AFTER MEDS AND BLOOD DRAWS 07/21/17 21:30 07/21/17 21:50 Ondansetron HCl (Zofran) 4 mg 1X ONCE IV 07/21/17 21:30 07/21/17 21:36 DC 07/21/17 21:50 Ciprofloxacin/ Dextrose 200 ml @ 200 mls/hr Q12HR IV 07/22/17 09:00 07/22/17 08:19 Metronidazole 100 ml @ 100 mls/hr Q8HRS IV 07/22/17 06:00 07/22/17 13:29 Sodium Chloride 1,000 ml @ 80 mls/hr [id number] IV 07/21/17 22:45 07/22/17 22:44 07/22/17 13:37 Acetaminophen (Tylenol) 650 mg PRN Q4HRS PRN PO FEVER 07/21/17 22:45 07/22/17 22:44 07/22/17 08:28 Ciprofloxacin/ Dextrose 200 ml @ 200 mls/hr ONCE ONCE IV 07/21/17 23:00 07/21/17 23:59 DC 07/21/17 23:25 Metronidazole 100 ml @ 100 mls/hr ONCE ONCE IV 07/22/17 00:00 07/22/17 00:59 DC 07/22/17 01:08 Imaging: Imaging: Findings: There is atelectasis in the lung bases. There is no pleural effusion. The heart is not enlarged. Coronary artery calcifications are noted. Small hiatal hernia is noted. Solid organ evaluation is limited without contrast. Liver is unremarkable. Gallbladder is absent. Spleen is not enlarged. Uterus and adrenals are unremarkable. There is no urolithiasis. There is atheromatous disease in the abdominal aorta without aneurysm. There appear to be 2 peripherally calcified splenic artery aneurysms about a centimeter in size each. Lack of oral contrast limits evaluation of bowel. There is no small bowel obstruction or mural thickening. Normal appendix is noted. There is mural thickening in the rectum with adjacent stranding. Remainder of the colon is grossly unremarkable allowing for limitations of no IV or oral contrast. There is no abscess or free air. There is marked bladder distention. There is no adnexal mass. There is no free pelvic fluid. There are mild degenerative changes in the spine. There is stranding of the gluteal fat bilaterally but no definite abscess on noncontrast imaging. IMPRESSION: 1. Mural thickening in the rectum may be secondary to proctitis. Follow-up to exclude neoplastic etiology is recommended. There is no abscess or free air. There is no definite fistula on noncontrast imaging. 2. Marked bladder distention. PE: GEN: NAD HEENT: Atraumatic, PERRL LUNGS: CTAB HEART: RRR +murm ABD: NABS, S/ND/NT EXTREMITY: No edema SKIN: No rashes, no jaundice NEURO/PSYCH: A & O 3 A/P: A/P: Lower abd pain, rectal pain - resolved Constipation -history of this, controlled w/ stool softeners, ran out -felt constipated x 1 day, last normal BM 3-4 days ago, hard stool yesterday Nausea, chills -s/p cholecystectomy, no previous EGD Leukocytosis, anemia, abnormal CT -mural thickening in the rectum w/ stranding -on IV Cipro and Flagyl -no obvious bleeding -?colonoscopy (?rigid proctoscopy) 40 years ago Recent URI -- Pain resolved. On IV atbx (?need). No bleeding (although is anemic) or diarrhea. Continue treatment for constipation. Outpt colonoscopy. PAIGE SANTILLAN Jul 22, 2017 14:26
[2017-07-22] MEDS: ASPIRIN ENTERIC COATED 81 MG TABLET.DR. PO SCH (14:46)
[2017-07-22] MEDS: DOXYCYCLINE HYCLATE 100 MG TABLET PO SCH ×2 (14:46→21:25)
[2017-07-22] MEDS: DOCUSATE SODIUM 100 MG CAPSULE. PO SCH ×2 (14:46→21:25)
[2017-07-22] MEDS: CETIRIZINE HCL 10 MG TABLET. PO SCH (14:46)
[2017-07-22] MEDS: POLYETHYLENE GLYCOL 3350 17 GM PACKET. PO SCH (14:47)
[2017-07-22] MEDS: INSULIN ASPART 300 UNITS/3 ML INSULN.PEN SQ SCH (16:44)
[2017-07-22 18:48] LABS: % SAT IRON 8 % (15-34); IRON,SERUM 15 ug/dL (50-170)
[2017-07-22 20:47] LABS: FOLATE 6.31 ng/ml (3.2-20.0)
[2017-07-22] MEDS: INSULIN DETEMIR 300 UNITS/3 ML INSULN.PEN. SQ SCH (21:33)
[2017-07-23 03:00] VITALS: BP 130/68
[2017-07-23] MEDS ORDERED: IBUP-1027 PO (04:42)
[2017-07-23] MEDS ORDERED: IBUPROFEN 400 MG TABLET. PO PRN (04:45)
[2017-07-23 05:16] LABS: BASO % 1 % (0-3); EOS % 2 % (0-3); HEMOGLOBIN 8.7 g/dL (12.0-15.5); LYMPH # 1.7 x10^3/uL (1.0-4.8); LYMPH % 24 % (24-48); MEAN CORPUSCULAR HEMOGLOBIN 31 pg (25-35); MEAN CORPUSCULAR HGB CONC 32 g/dL (31-37); MEAN CORPUSCULAR VOLUME 95 fL (79-100); MONO % 7 % (0-9); NEUT % 66 % (31-73); PLATELET COUNT 183 x10^3/uL (140-400); RED BLOOD COUNT 2.85 x10^6/uL (3.50-5.40); RED CELL DISTRIBUTION WIDTH 14.6 % (11.5-14.5); RETIC COUNT 1.9 % (0.5-2.5); WHITE BLOOD COUNT 6.9 x10^3/uL (4.0-11.0)
[2017-07-23 05:38] LABS: CALCIUM 8.3 mg/dL (8.5-10.1); CREATININE 0.9 mg/dL (0.6-1.0); GFR 72.9
[2017-07-23 07:00] VITALS: BP 109/58
[2017-07-23] MEDS: INSULIN ASPART 300 UNITS/3 ML INSULN.PEN SQ SCH ×3 (08:00→17:00)
[2017-07-23] MEDS: DOXYCYCLINE HYCLATE 100 MG TABLET PO SCH ×2 (08:28→20:59)
[2017-07-23] MEDS: ASPIRIN ENTERIC COATED 81 MG TABLET.DR. PO SCH (08:28)
[2017-07-23] MEDS: POLYETHYLENE GLYCOL 3350 17 GM PACKET. PO SCH ×2 (08:29→21:00)
[2017-07-23] MEDS: CETIRIZINE HCL 10 MG TABLET. PO SCH (08:29)
[2017-07-23] MEDS: DOCUSATE SODIUM 100 MG CAPSULE. PO SCH ×2 (08:29→20:59)
[2017-07-23] MEDS: CIPROFLOXACIN 400MG PREMIX 200 ML IV SCH ×2 (08:30→20:59)
[2017-07-23] MEDS: LISINOPRIL 10 MG TABLET PO SCH (08:33)
--- NOTE | 2017-07-23 09:14 | PDOC2 ---
CONSULT Date of Consult Date of Consult DATE: 07/23/17 TIME: 09:09 Reason for Consult Reason for Consult: proctitis Referring Physician Referring Physician: Dr Dennison Identification/Chief Complaint Chief Complaint abdominal pain Problems: Source Source: Chart review, Patient History of Present Illness Reason for Visit: Constipation for 3 days and passing hard stool. Fleets enema--was able to pass a large amount of stool, then had abdominal pain, nausea, and shaking. CT showing rectum thickening, proctitis Currently minimal abdominal/rectal pain. Mild nausea after breakfast. Last colonoscopy 40 years ago Past Medical History Cardiovascular: HTN, Hyperlipidemia Endocrine: Diabetes Past Surgical History Past Surgical History: Cholecystectomy Family History Family History: No Significant Social History No ALCOHOL: none Drugs: None Lives: Alone Current Problem List Problem List Problems Medical Problems: (1) Abdominal pain Status: Acute (2) Proctitis Status: Acute Current Medications Current Medications Current Medications Hydromorphone HCl (Dilaudid) 0.5 mg PRN Q15MIN PRN IV/SQ PAIN GREATER THAN 3/ 10 Last administered on 07/21/17 21:50; Start 07/21/17 at 21:30; Stop at 21:29; Status DC Sodium Chloride 1,000 ml @ 1,000 mls/hr Q1H IV Last administered on 21:49; Start 07/21/17 at 21:30; Stop 07/21/17 at 22:29; Status DC Sodium Chloride (Normal Saline Flush) 10 ml QSHIFT PRN IV AFTER MEDS AND BLOOD DRAWS Last administered on 07/21/17 21:50; Start 07/21/17 at 21:30 Ondansetron HCl (Zofran) 4 mg 1X ONCE IV Last administered on 07/21/17 21:50 ; Start 07/21/17 at 21:30; Stop 07/21/17 at 21:36; Status DC Ciprofloxacin/ Dextrose 200 ml @ 200 mls/hr Q12HR IV Last administered on 08:30; Start 07/22/17 at 09:00 Metronidazole 100 ml @ 100 mls/hr Q8HRS IV Last administered on 07/23/17 04: 31; Start 07/22/17 at 06:00 Ondansetron HCl (Zofran) 4 mg PRN Q8HRS PRN IV NAUSEA/VOMITING Last administered on 07/22/17 15:45; Start 07/21/17 at 22:45; Stop 07/22/17 at 22 :44; Status DC Fentanyl Citrate (Fentanyl 2ml Vial) 50 mcg PRN Q2HR PRN IV PAIN; Start at 22:45; Stop 07/22/17 at 22:44; Status DC Sodium Chloride 1,000 ml @ 80 mls/hr [id number] IV Last administered on 13:37; Start 07/21/17 at 22:45; Stop 07/22/17 at 22:44; Status DC Acetaminophen (Tylenol) 650 mg PRN Q4HRS PRN PO FEVER Last administered on 08:28; Start 07/21/17 at 22:45; Stop 07/22/17 at 22:44; Status DC Ciprofloxacin/ Dextrose 200 ml @ 200 mls/hr ONCE ONCE IV Last administered on 07/21/17 23:25; Start 07/21/17 at 23:00; Stop 07/21/17 at 23:59; Status DC Metronidazole 100 ml @ 100 mls/hr ONCE ONCE IV Last administered on 01:08; Start 07/22/17 at 00:00; Stop 07/22/17 at 00:59; Status DC Aspirin (Ecotrin) 81 mg DAILY PO Last administered on 07/23/17 08:28; Start 07/22/17 at 14:00 Lisinopril (Prinivil) 10 mg DAILY PO ; Start 07/22/17 at 14:00 Non-Formulary Medication 1 puff PRN Q4HRS PRN IH FOR ASTHMA; Start 07/22/17 at 13:30; Status UNV Insulin Detemir (Levemir) 35 units QHS SQ Last administered on 07/22/17 21:33 ; Start 07/22/17 at 21:00 Insulin Aspart (NovoLOG) 0-9 UNITS TIDWMEALS SQ ; Start 07/22/17 at 17:00 Dextrose (Dextrose 50%-Water Syringe) 12.5 gm PRN Q15MIN PRN IV SEE COMMENTS; Start 07/22/17 at 13:30 Doxycycline Hyclate (Vibra-Tab) 100 mg BID PO Last administered on 07/23/17 08:28; Start 07/22/17 at 14:00 Phenylephrine HCl (Hemorrhoidal) 1 supp PRN Q12HR PRN RI RECTAL PAIN; Start at 13:30 Docusate Sodium (Colace) 100 mg BID PO Last administered on 07/23/17 08:29; Start 07/22/17 at 14:00 Polyethylene Glycol (miraLAX PACKET) 17 gm DAILY PO Last administered on 08:29; Start 07/22/17 at 14:00 Magnesium Hydroxide (Milk Of Magnesia) 2,400 mg PRN DAILY PRN PO CONSTIPATION; Start 07/22/17 at 13:30 Albuterol Sulfate (Ventolin Neb Soln) 2.5 mg PRN Q4HRS PRN NEB SHORTNESS OF BREATH Last administered on 07/22/17 16:15; Start 07/22/17 at 13:45 Cetirizine HCl (ZyrTEC) 10 mg DAILY PO Last administered on 07/23/17 08:29; Start 07/22/17 at 14:15 Ibuprofen (Motrin) 400 mg PRN Q6HRS PRN PO INFLAMMATION Last administered on 05:07; Start 07/23/17 at 04:45 Active Scripts Active Reported Ibuprofen 400 Mg Tablet 400 Mg PO PRN Q6HRS PRN Proventil Hfa Inhaler (Albuterol Sulfate) 6.7 Gm Hfa.aer.ad 1 Puff IH PRN Q4HRS PRN Lantus Solostar (Insulin Glargine,Hum.rec.anlog) 100 Unit/1 Ml Insuln.pen 35 Unit SQ QHS Novolog Flexpen (Insulin Aspart) 100 Unit/1 Ml Insuln.pen 1 Unit SQ Lisinopril 10 Mg Tablet 1 Tab PO DAILY Aspir 81 (Aspirin) 81 Mg Tablet.dr 1 Tab PO DAILY Allergies Allergies: Coded Allergies: Sulfa (Sulfonamide Antibiotics) (Verified Allergy, Unknown, 02/05/17) cheese (Verified Allergy, Unknown, 02/05/17) walnut (Verified Allergy, Unknown, 02/05/17) ROS General: YES: Chills, Appetite (decreased), No: Other (fevers) PSYCHOLOGICAL ROS: No: Anxiety, Depression Eyes: No Blurry vision, No Double vision HEENT: No: Heacaches, Sore Throat Hematological and Lymphatic: No: Bleeding Problems, Blood Clots Respiratory: YES: SOB with excertion, No: Cough Gastrointestinal: Yes Other (see hpi) Genitourinary: No Dysuria, No Hematuria Musculoskeletal: No Joint Pain, No Muscle Pain Neurological: No Impaired Coord/balance, No Numbness/Tingling Skin: No Pruritus, No Rash Physical Exam General: Alert, Oriented X3, Cooperative, No acute distress HEENT: PERRLA, Mucous membr. moist/pink Lungs: Clear to auscultation, Normal air movement Heart: Regular rate, Normal S1, Normal S2, No murmurs Abdomen: Normal bowel sounds, Soft, No tenderness, No hepatosplenomegaly, No masses Extremities: No clubbing, No cyanosis Skin: No rashes, No breakdown Neuro: Normal gait, Normal speech Psych/Mental Status: Mental status NL, Mood NL MUSCULOSKELETAL: No deformity, No swelling Vitals VITALS Vital Signs Date Time Temp Pulse Resp B/P (MAP) Pulse Ox O2 Delivery O2 Flow Rate FiO2 07/23/17 08:33 70 109/58 07/23/17 07:00 98.3 18 97 Room Air 98.3 Labs Labs Laboratory Tests Test 07/21/17 20:45 07/21/17 21:40 07/21/17 23:20 07/22/17 07:21 Urine Collection Type Unknown Urine Color Yellow Urine Clarity Clear Urine pH 6.0 Urine Specific [place] 1.010 Urine Protein Negative mg/dL (NEG-TRACE) Urine Glucose (UA) Negative mg/dL (NEG) Urine Ketones (Stick) Negative mg/dL (NEG) Urine Blood Small (NEG) Urine Nitrite Negative (NEG) Urine Bilirubin Negative (NEG) Urine Urobilinogen Dipstick 0.2 mg/dL (0.2 mg/dL) Urine Leukocyte Esterase Small (NEG) Urine RBC Rare /HPF (0-2) Urine WBC 1-4 /HPF (0-4) Urine Squamous Epithelial Cells Many /LPF Urine Bacteria Few /HPF (0-FEW) Urine Mucus Slight /LPF White Blood Count 15.4 x10^3/uL (4.0-11.0) Red Blood Count 3.46 x10^6/uL (3.50-5.40) Hemoglobin 10.3 g/dL (12.0-15.5) Hematocrit 31.8 % (36.0-47.0) Mean Corpuscular Volume 92 fL (79-100) Mean Corpuscular Hemoglobin 30 pg (25-35) Mean Corpuscular Hemoglobin Concent 32 g/dL (31-37) Red Cell Distribution Width 14.5 % (11.5-14.5) Platelet Count 241 x10^3/uL (140-400) Neutrophils (%) (Auto) 90 % (31-73) Lymphocytes (%) (Auto) 5 % (24-48) Monocytes (%) (Auto) 5 % (0-9) Eosinophils (%) (Auto) 0 % (0-3) Basophils (%) (Auto) 0 % (0-3) Neutrophils # (Auto) 13.8 x10^3uL (1.8-7.7) Lymphocytes # (Auto) 0.8 x10^3/uL (1.0-4.8) Monocytes # (Auto) 0.8 x10^3/uL (0.0-1.1) Eosinophils # (Auto) 0.0 x10^3/uL (0.0-0.7) Basophils # (Auto) 0.0 x10^3/uL (0.0-0.2) Segmented Neutrophils % 72 % (35-66) Band Neutrophils % 18 % (0-9) Lymphocytes % 7 % (24-48) Monocytes % 2 % (0-10) Eosinophils % 1 % (0-5) Toxic Granulation Mod Toxic Vacuolation Slight Platelet Estimate Adequate (ADEQUATE) Sodium Level 137 mmol/L (136-145) Potassium Level 4.2 mmol/L (3.5-5.1) Chloride Level 104 mmol/L (98-107) Carbon Dioxide Level 26 mmol/L (21-32) Anion Gap 7 (6-14) Blood Urea Nitrogen 21 mg/dL (7-20) Creatinine 1.1 mg/dL (0.6-1.0) Estimated GFR (Cockcroft-Gault) 57.8 Glucose Level 173 mg/dL (70-99) Calcium Level 9.1 mg/dL (8.5-10.1) Total Bilirubin 0.4 mg/dL (0.2-1.0) Direct Bilirubin 0.1 mg/dL (0.0-0.2) Aspartate Amino Transf (AST/SGOT) 16 U/L (15-37) Alanine Aminotransferase (ALT/SGPT) 13 U/L (14-59) Alkaline Phosphatase 107 U/L (46-116) Creatine Kinase 57 U/L (26-192) Creatine Kinase MB (Mass) < 0.5 ng/mL (0.0-3.6) Creatine Kinase MB Relative Index 0.9 % (0-4) Troponin I Quantitative < 0.017 ng/mL (0.000-0.055) Total Protein 7.3 g/dL (6.4-8.2) Albumin 3.2 g/dL (3.4-5.0) Lipase 47 U/L (73-393) Lactic Acid Level 0.8 mmol/L (0.4-2.0) Glucose (Fingerstick) 117 mg/dL (70-99) Test 07/22/17 10:56 07/22/17 16:34 07/22/17 18:20 07/22/17 21:28 Glucose (Fingerstick) 144 mg/dL (70-99) 140 mg/dL (70-99) 136 mg/dL (70-99) Iron Level 15 ug/dL (50-170) Total Iron Binding Capacity 190 ug/dL (250-450) Iron Saturation 8 % (15-34) Vitamin B12 Level 896 pg/mL (247-911) Serum Folate 6.31 ng/ml (3.2-20.0) Test 07/23/17 03:45 07/23/17 07:20 White Blood Count 6.9 x10^3/uL (4.0-11.0) Red Blood Count 2.85 x10^6/uL (3.50-5.40) Hemoglobin 8.7 g/dL (12.0-15.5) Hematocrit 27.0 % (36.0-47.0) Mean Corpuscular Volume 95 fL (79-100) Mean Corpuscular Hemoglobin 31 pg (25-35) Mean Corpuscular Hemoglobin Concent 32 g/dL (31-37) Red Cell Distribution Width 14.6 % (11.5-14.5) Platelet Count 183 x10^3/uL (140-400) Neutrophils (%) (Auto) 66 % (31-73) Lymphocytes (%) (Auto) 24 % (24-48) Monocytes (%) (Auto) 7 % (0-9) Eosinophils (%) (Auto) 2 % (0-3) Basophils (%) (Auto) 1 % (0-3) Neutrophils # (Auto) 4.5 x10^3uL (1.8-7.7) Lymphocytes # (Auto) 1.7 x10^3/uL (1.0-4.8) Monocytes # (Auto) 0.5 x10^3/uL (0.0-1.1) Eosinophils # (Auto) 0.2 x10^3/uL (0.0-0.7) Basophils # (Auto) 0.0 x10^3/uL (0.0-0.2) Erythrocyte Sedimentation Rate 70 (0-25) Reticulocyte Count (auto) 1.9 % (0.5-2.5) Sodium Level 142 mmol/L (136-145) Potassium Level 4.0 mmol/L (3.5-5.1) Chloride Level 110 mmol/L (98-107) Carbon Dioxide Level 26 mmol/L (21-32) Anion Gap 6 (6-14) Blood Urea Nitrogen 12 mg/dL (7-20) Creatinine 0.9 mg/dL (0.6-1.0) Estimated GFR (Cockcroft-Gault) 72.9 Glucose Level 119 mg/dL (70-99) Calcium Level 8.3 mg/dL (8.5-10.1) Glucose (Fingerstick) 90 mg/dL (70-99) Laboratory Tests Test 07/22/17 10:56 07/22/17 16:34 07/22/17 18:20 07/22/17 21:28 Glucose (Fingerstick) 144 mg/dL (70-99) 140 mg/dL (70-99) 136 mg/dL (70-99) Iron Level 15 ug/dL (50-170) Total Iron Binding Capacity 190 ug/dL (250-450) Iron Saturation 8 % (15-34) Vitamin B12 Level 896 pg/mL (247-911) Serum Folate 6.31 ng/ml (3.2-20.0) Test 07/23/17 03:45 07/23/17 07:20 White Blood Count 6.9 x10^3/uL (4.0-11.0) Red Blood Count 2.85 x10^6/uL (3.50-5.40) Hemoglobin 8.7 g/dL (12.0-15.5) Hematocrit 27.0 % (36.0-47.0) Mean Corpuscular Volume 95 fL (79-100) Mean Corpuscular Hemoglobin 31 pg (25-35) Mean Corpuscular Hemoglobin Concent 32 g/dL (31-37) Red Cell Distribution Width 14.6 % (11.5-14.5) Platelet Count 183 x10^3/uL (140-400) Neutrophils (%) (Auto) 66 % (31-73) Lymphocytes (%) (Auto) 24 % (24-48) Monocytes (%) (Auto) 7 % (0-9) Eosinophils (%) (Auto) 2 % (0-3) Basophils (%) (Auto) 1 % (0-3) Neutrophils # (Auto) 4.5 x10^3uL (1.8-7.7) Lymphocytes # (Auto) 1.7 x10^3/uL (1.0-4.8) Monocytes # (Auto) 0.5 x10^3/uL (0.0-1.1) Eosinophils # (Auto) 0.2 x10^3/uL (0.0-0.7) Basophils # (Auto) 0.0 x10^3/uL (0.0-0.2) Erythrocyte Sedimentation Rate 70 (0-25) Reticulocyte Count (auto) 1.9 % (0.5-2.5) Sodium Level 142 mmol/L (136-145) Potassium Level 4.0 mmol/L (3.5-5.1) Chloride Level 110 mmol/L (98-107) Carbon Dioxide Level 26 mmol/L (21-32) Anion Gap 6 (6-14) Blood Urea Nitrogen 12 mg/dL (7-20) Creatinine 0.9 mg/dL (0.6-1.0) Estimated GFR (Cockcroft-Gault) 72.9 Glucose Level 119 mg/dL (70-99) Calcium Level 8.3 mg/dL (8.5-10.1) Glucose (Fingerstick) 90 mg/dL (70-99) Assessment/Plan Assessment/Plan abdominal pain, rectal pain, constipation CT with [place] thickening in the rectum may be secondary to proctitis GI following, planning outpt scope treatment of constipation no surgical needs at this time ELIER CARVER TONG HOOKER Jul 23, 2017 09:14
[2017-07-23] MEDS ORDERED: ONDANSETRON PF 4 MG/2 ML VIAL. IV PRN (09:30)
[2017-07-23] MEDS: FERROUS SULFATE 325 MG TABLET. PO SCH (10:00)
[2017-07-23 11:00] VITALS: BP 113/55
[2017-07-23] MEDS ORDERED: MAG HYDROX/ALUMINUM HYD/SIMETH 30 ML ORAL.SUSP PO PRN (11:00)
[2017-07-23] MEDS ORDERED: PROMETHAZINE 12.5 MG in IV NORMAL SALINE 50ML 50 ML IV PRN (11:00)
--- NOTE | 2017-07-23 11:01 | PDOC ---
PROGRESS NOTES Chief Complaint Chief Complaint 1. Proctitis 2. Urinary distention 3. SIRS, leukocytosis, no sepsis 4. HTN DM2 insulin req - controlled 5. MIld PCM 6. Acute bronchitis History of Present Illness History of Present Illness NAuseated today, not good WBC better down to normal NO fevers NO surgical plans Plans of OP cscope for now NO sleep Iron indices show EMILY Plan: Start ferrous sulfate Mylanta, zofran etc AMbien vs benadryl tonight Labs tmr Vitals Vitals Vital Signs Date Time Temp Pulse Resp B/P (MAP) Pulse Ox O2 Delivery O2 Flow Rate FiO2 07/23/17 08:33 70 109/58 07/23/17 08:00 Room Air 07/23/17 07:00 98.3 18 97 98.3 Physical Exam General: Alert, Oriented X3, Cooperative, No acute distress Heart: Regular rate, Normal S1, Normal S2, No murmurs Abdomen: Normal bowel sounds, Soft, No tenderness, No hepatosplenomegaly, No masses Extremities: No clubbing, No cyanosis Skin: No rashes, No breakdown Labs LABS Laboratory Tests Test 07/22/17 16:34 07/22/17 18:20 07/22/17 21:28 07/23/17 03:45 Glucose (Fingerstick) 140 mg/dL (70-99) 136 mg/dL (70-99) Iron Level 15 ug/dL (50-170) Total Iron Binding Capacity 190 ug/dL (250-450) Iron Saturation 8 % (15-34) Vitamin B12 Level 896 pg/mL (247-911) Serum Folate 6.31 ng/ml (3.2-20.0) White Blood Count 6.9 x10^3/uL (4.0-11.0) Red Blood Count 2.85 x10^6/uL (3.50-5.40) Hemoglobin 8.7 g/dL (12.0-15.5) Hematocrit 27.0 % (36.0-47.0) Mean Corpuscular Volume 95 fL (79-100) Mean Corpuscular Hemoglobin 31 pg (25-35) Mean Corpuscular Hemoglobin Concent 32 g/dL (31-37) Red Cell Distribution Width 14.6 % (11.5-14.5) Platelet Count 183 x10^3/uL (140-400) Neutrophils (%) (Auto) 66 % (31-73) Lymphocytes (%) (Auto) 24 % (24-48) Monocytes (%) (Auto) 7 % (0-9) Eosinophils (%) (Auto) 2 % (0-3) Basophils (%) (Auto) 1 % (0-3) Neutrophils # (Auto) 4.5 x10^3uL (1.8-7.7) Lymphocytes # (Auto) 1.7 x10^3/uL (1.0-4.8) Monocytes # (Auto) 0.5 x10^3/uL (0.0-1.1) Eosinophils # (Auto) 0.2 x10^3/uL (0.0-0.7) Basophils # (Auto) 0.0 x10^3/uL (0.0-0.2) Erythrocyte Sedimentation Rate 70 (0-25) Reticulocyte Count (auto) 1.9 % (0.5-2.5) Sodium Level 142 mmol/L (136-145) Potassium Level 4.0 mmol/L (3.5-5.1) Chloride Level 110 mmol/L (98-107) Carbon Dioxide Level 26 mmol/L (21-32) Anion Gap 6 (6-14) Blood Urea Nitrogen 12 mg/dL (7-20) Creatinine 0.9 mg/dL (0.6-1.0) Estimated GFR (Cockcroft-Gault) 72.9 Glucose Level 119 mg/dL (70-99) Calcium Level 8.3 mg/dL (8.5-10.1) Test 07/23/17 07:20 Glucose (Fingerstick) 90 mg/dL (70-99) Review of Systems Review of Systems nausea, no cp, no emesis, no fevers no diarrhea Assessment and Plan Assessmemt and Plan Problems Medical Problems: (1) Abdominal pain Status: Acute (2) Proctitis Status: Acute Problems: Comment Review of Relevant I have reviewed the following items subha (where applicable) has been applied. Labs Laboratory Tests Test 07/21/17 20:45 07/21/17 21:40 07/21/17 23:20 07/22/17 07:21 Urine Collection Type Unknown Urine Color Yellow Urine Clarity Clear Urine pH 6.0 Urine Specific [place] 1.010 Urine Protein Negative mg/dL (NEG-TRACE) Urine Glucose (UA) Negative mg/dL (NEG) Urine Ketones (Stick) Negative mg/dL (NEG) Urine Blood Small (NEG) Urine Nitrite Negative (NEG) Urine Bilirubin Negative (NEG) Urine Urobilinogen Dipstick 0.2 mg/dL (0.2 mg/dL) Urine Leukocyte Esterase Small (NEG) Urine RBC Rare /HPF (0-2) Urine WBC 1-4 /HPF (0-4) Urine Squamous Epithelial Cells Many /LPF Urine Bacteria Few /HPF (0-FEW) Urine Mucus Slight /LPF White Blood Count 15.4 x10^3/uL (4.0-11.0) Red Blood Count 3.46 x10^6/uL (3.50-5.40) Hemoglobin 10.3 g/dL (12.0-15.5) Hematocrit 31.8 % (36.0-47.0) Mean Corpuscular Volume 92 fL (79-100) Mean Corpuscular Hemoglobin 30 pg (25-35) Mean Corpuscular Hemoglobin Concent 32 g/dL (31-37) Red Cell Distribution Width 14.5 % (11.5-14.5) Platelet Count 241 x10^3/uL (140-400) Neutrophils (%) (Auto) 90 % (31-73) Lymphocytes (%) (Auto) 5 % (24-48) Monocytes (%) (Auto) 5 % (0-9) Eosinophils (%) (Auto) 0 % (0-3) Basophils (%) (Auto) 0 % (0-3) Neutrophils # (Auto) 13.8 x10^3uL (1.8-7.7) Lymphocytes # (Auto) 0.8 x10^3/uL (1.0-4.8) Monocytes # (Auto) 0.8 x10^3/uL (0.0-1.1) Eosinophils # (Auto) 0.0 x10^3/uL (0.0-0.7) Basophils # (Auto) 0.0 x10^3/uL (0.0-0.2) Segmented Neutrophils % 72 % (35-66) Band Neutrophils % 18 % (0-9) Lymphocytes % 7 % (24-48) Monocytes % 2 % (0-10) Eosinophils % 1 % (0-5) Toxic Granulation Mod Toxic Vacuolation Slight Platelet Estimate Adequate (ADEQUATE) Sodium Level 137 mmol/L (136-145) Potassium Level 4.2 mmol/L (3.5-5.1) Chloride Level 104 mmol/L (98-107) Carbon Dioxide Level 26 mmol/L (21-32) Anion Gap 7 (6-14) Blood Urea Nitrogen 21 mg/dL (7-20) Creatinine 1.1 mg/dL (0.6-1.0) Estimated GFR (Cockcroft-Gault) 57.8 Glucose Level 173 mg/dL (70-99) Calcium Level 9.1 mg/dL (8.5-10.1) Total Bilirubin 0.4 mg/dL (0.2-1.0) Direct Bilirubin 0.1 mg/dL (0.0-0.2) Aspartate Amino Transf (AST/SGOT) 16 U/L (15-37) Alanine Aminotransferase (ALT/SGPT) 13 U/L (14-59) Alkaline Phosphatase 107 U/L (46-116) Creatine Kinase 57 U/L (26-192) Creatine Kinase MB (Mass) < 0.5 ng/mL (0.0-3.6) Creatine Kinase MB Relative Index 0.9 % (0-4) Troponin I Quantitative < 0.017 ng/mL (0.000-0.055) Total Protein 7.3 g/dL (6.4-8.2) Albumin 3.2 g/dL (3.4-5.0) Lipase 47 U/L (73-393) Lactic Acid Level 0.8 mmol/L (0.4-2.0) Glucose (Fingerstick) 117 mg/dL (70-99) Test 07/22/17 10:56 07/22/17 16:34 07/22/17 18:20 07/22/17 21:28 Glucose (Fingerstick) 144 mg/dL (70-99) 140 mg/dL (70-99) 136 mg/dL (70-99) Iron Level 15 ug/dL (50-170) Total Iron Binding Capacity 190 ug/dL (250-450) Iron Saturation 8 % (15-34) Vitamin B12 Level 896 pg/mL (247-911) Serum Folate 6.31 ng/ml (3.2-20.0) Test 07/23/17 03:45 07/23/17 07:20 White Blood Count 6.9 x10^3/uL (4.0-11.0) Red Blood Count 2.85 x10^6/uL (3.50-5.40) Hemoglobin 8.7 g/dL (12.0-15.5) Hematocrit 27.0 % (36.0-47.0) Mean Corpuscular Volume 95 fL (79-100) Mean Corpuscular Hemoglobin 31 pg (25-35) Mean Corpuscular Hemoglobin Concent 32 g/dL (31-37) Red Cell Distribution Width 14.6 % (11.5-14.5) Platelet Count 183 x10^3/uL (140-400) Neutrophils (%) (Auto) 66 % (31-73) Lymphocytes (%) (Auto) 24 % (24-48) Monocytes (%) (Auto) 7 % (0-9) Eosinophils (%) (Auto) 2 % (0-3) Basophils (%) (Auto) 1 % (0-3) Neutrophils # (Auto) 4.5 x10^3uL (1.8-7.7) Lymphocytes # (Auto) 1.7 x10^3/uL (1.0-4.8) Monocytes # (Auto) 0.5 x10^3/uL (0.0-1.1) Eosinophils # (Auto) 0.2 x10^3/uL (0.0-0.7) Basophils # (Auto) 0.0 x10^3/uL (0.0-0.2) Erythrocyte Sedimentation Rate 70 (0-25) Reticulocyte Count (auto) 1.9 % (0.5-2.5) Sodium Level 142 mmol/L (136-145) Potassium Level 4.0 mmol/L (3.5-5.1) Chloride Level 110 mmol/L (98-107) Carbon Dioxide Level 26 mmol/L (21-32) Anion Gap 6 (6-14) Blood Urea Nitrogen 12 mg/dL (7-20) Creatinine 0.9 mg/dL (0.6-1.0) Estimated GFR (Cockcroft-Gault) 72.9 Glucose Level 119 mg/dL (70-99) Calcium Level 8.3 mg/dL (8.5-10.1) Glucose (Fingerstick) 90 mg/dL (70-99) Laboratory Tests Test 07/22/17 16:34 07/22/17 18:20 07/22/17 21:28 07/23/17 03:45 Glucose (Fingerstick) 140 mg/dL (70-99) 136 mg/dL (70-99) Iron Level 15 ug/dL (50-170) Total Iron Binding Capacity 190 ug/dL (250-450) Iron Saturation 8 % (15-34) Vitamin B12 Level 896 pg/mL (247-911) Serum Folate 6.31 ng/ml (3.2-20.0) White Blood Count 6.9 x10^3/uL (4.0-11.0) Red Blood Count 2.85 x10^6/uL (3.50-5.40) Hemoglobin 8.7 g/dL (12.0-15.5) Hematocrit 27.0 % (36.0-47.0) Mean Corpuscular Volume 95 fL (79-100) Mean Corpuscular Hemoglobin 31 pg (25-35) Mean Corpuscular Hemoglobin Concent 32 g/dL (31-37) Red Cell Distribution Width 14.6 % (11.5-14.5) Platelet Count 183 x10^3/uL (140-400) Neutrophils (%) (Auto) 66 % (31-73) Lymphocytes (%) (Auto) 24 % (24-48) Monocytes (%) (Auto) 7 % (0-9) Eosinophils (%) (Auto) 2 % (0-3) Basophils (%) (Auto) 1 % (0-3) Neutrophils # (Auto) 4.5 x10^3uL (1.8-7.7) Lymphocytes # (Auto) 1.7 x10^3/uL (1.0-4.8) Monocytes # (Auto) 0.5 x10^3/uL (0.0-1.1) Eosinophils # (Auto) 0.2 x10^3/uL (0.0-0.7) Basophils # (Auto) 0.0 x10^3/uL (0.0-0.2) Erythrocyte Sedimentation Rate 70 (0-25) Reticulocyte Count (auto) 1.9 % (0.5-2.5) Sodium Level 142 mmol/L (136-145) Potassium Level 4.0 mmol/L (3.5-5.1) Chloride Level 110 mmol/L (98-107) Carbon Dioxide Level 26 mmol/L (21-32) Anion Gap 6 (6-14) Blood Urea Nitrogen 12 mg/dL (7-20) Creatinine 0.9 mg/dL (0.6-1.0) Estimated GFR (Cockcroft-Gault) 72.9 Glucose Level 119 mg/dL (70-99) Calcium Level 8.3 mg/dL (8.5-10.1) Test 07/23/17 07:20 Glucose (Fingerstick) 90 mg/dL (70-99) Microbiology 07/21/17 Blood Culture - Preliminary, Resulted NO GROWTH AFTER 1 DAY 07/21/17 Urine Culture - Preliminary, Resulted 07/21/17 Urine Culture Result 1 (MASHA) - Preliminary, Resulted Medications Current Medications Hydromorphone HCl (Dilaudid) 0.5 mg PRN Q15MIN PRN IV/SQ PAIN GREATER THAN 3/ 10 Last administered on 07/21/17 21:50; Start 07/21/17 at 21:30; Stop at 21:29; Status DC Sodium Chloride 1,000 ml @ 1,000 mls/hr Q1H IV Last administered on 21:49; Start 07/21/17 at 21:30; Stop 07/21/17 at 22:29; Status DC Sodium Chloride (Normal Saline Flush) 10 ml QSHIFT PRN IV AFTER MEDS AND BLOOD DRAWS Last administered on 07/21/17 21:50; Start 07/21/17 at 21:30 Ondansetron HCl (Zofran) 4 mg 1X ONCE IV Last administered on 07/21/17 21:50 ; Start 07/21/17 at 21:30; Stop 07/21/17 at 21:36; Status DC Ciprofloxacin/ Dextrose 200 ml @ 200 mls/hr Q12HR IV Last administered on 08:30; Start 07/22/17 at 09:00 Metronidazole 100 ml @ 100 mls/hr Q8HRS IV Last administered on 07/23/17 04: 31; Start 07/22/17 at 06:00 Ondansetron HCl (Zofran) 4 mg PRN Q8HRS PRN IV NAUSEA/VOMITING Last administered on 07/22/17 15:45; Start 07/21/17 at 22:45; Stop 07/22/17 at 22 :44; Status DC Fentanyl Citrate (Fentanyl 2ml Vial) 50 mcg PRN Q2HR PRN IV PAIN; Start at 22:45; Stop 07/22/17 at 22:44; Status DC Sodium Chloride 1,000 ml @ 80 mls/hr [id number] IV Last administered on 13:37; Start 07/21/17 at 22:45; Stop 07/22/17 at 22:44; Status DC Acetaminophen (Tylenol) 650 mg PRN Q4HRS PRN PO FEVER Last administered on 08:28; Start 07/21/17 at 22:45; Stop 07/22/17 at 22:44; Status DC Ciprofloxacin/ Dextrose 200 ml @ 200 mls/hr ONCE ONCE IV Last administered on 07/21/17 23:25; Start 07/21/17 at 23:00; Stop 07/21/17 at 23:59; Status DC Metronidazole 100 ml @ 100 mls/hr ONCE ONCE IV Last administered on 01:08; Start 07/22/17 at 00:00; Stop 07/22/17 at 00:59; Status DC Aspirin (Ecotrin) 81 mg DAILY PO Last administered on 07/23/17 08:28; Start 07/22/17 at 14:00 Lisinopril (Prinivil) 10 mg DAILY PO ; Start 07/22/17 at 14:00 Non-Formulary Medication 1 puff PRN Q4HRS PRN IH FOR ASTHMA; Start 07/22/17 at 13:30; Status UNV Insulin Detemir (Levemir) 35 units QHS SQ Last administered on 07/22/17 21:33 ; Start 07/22/17 at 21:00 Insulin Aspart (NovoLOG) 0-9 UNITS TIDWMEALS SQ ; Start 07/22/17 at 17:00 Dextrose (Dextrose 50%-Water Syringe) 12.5 gm PRN Q15MIN PRN IV SEE COMMENTS; Start 07/22/17 at 13:30 Doxycycline Hyclate (Vibra-Tab) 100 mg BID PO Last administered on 07/23/17 08:28; Start 07/22/17 at 14:00 Phenylephrine HCl (Hemorrhoidal) 1 supp PRN Q12HR PRN IL RECTAL PAIN; Start at 13:30 Docusate Sodium (Colace) 100 mg BID PO Last administered on 07/23/17 08:29; Start 07/22/17 at 14:00 Polyethylene Glycol (miraLAX PACKET) 17 gm DAILY PO Last administered on 08:29; Start 07/22/17 at 14:00 Magnesium Hydroxide (Milk Of Magnesia) 2,400 mg PRN DAILY PRN PO CONSTIPATION; Start 07/22/17 at 13:30 Albuterol Sulfate (Ventolin Neb Soln) 2.5 mg PRN Q4HRS PRN NEB SHORTNESS OF BREATH Last administered on 07/22/17 16:15; Start 07/22/17 at 13:45 Cetirizine HCl (ZyrTEC) 10 mg DAILY PO Last administered on 07/23/17 08:29; Start 07/22/17 at 14:15 Ibuprofen (Motrin) 400 mg PRN Q6HRS PRN PO INFLAMMATION Last administered on 05:07; Start 07/23/17 at 04:45; Stop 07/23/17 at 09:18; Status DC Ferrous Sulfate (Feosol) 325 mg DAILYWBKFT PO ; Start 07/23/17 at 10:00 Ondansetron HCl (Zofran) 4 mg PRN Q8HRS PRN IV NAUSEA/VOMITING Last administered on 07/23/17 09:34; Start 07/23/17 at 09:30 Active Scripts Active Reported Ibuprofen 400 Mg Tablet 400 Mg PO PRN Q6HRS PRN Proventil Hfa Inhaler (Albuterol Sulfate) 6.7 Gm Hfa.aer.ad 1 Puff IH PRN Q4HRS PRN Lantus Solostar (Insulin Glargine,Hum.rec.anlog) 100 Unit/1 Ml Insuln.pen 35 Unit SQ QHS Novolog Flexpen (Insulin Aspart) 100 Unit/1 Ml Insuln.pen 1 Unit SQ Lisinopril 10 Mg Tablet 1 Tab PO DAILY Aspir 81 (Aspirin) 81 Mg Tablet.dr 1 Tab PO DAILY Vitals/I & O Vital Sign - Last 24 Hours 07/22/17 07/22/17 07/22/17 07/22/17 13:41 15:00 16:18 19:00 Temp 98.2 99.2 98.2 99.2 Pulse 73 75 79 Resp 18 18 B/P (MAP) 97/41 114/44 (67) 117/52 (73) Pulse Ox 96 97 95 O2 Delivery Room Air Room Air Room Air 07/22/17 07/22/17 07/23/17 07/23/17 20:00 23:00 03:00 07:00 Temp 99.1 98.1 98.3 99.1 98.1 98.3 Pulse 72 61 66 Resp 18 18 18 B/P (MAP) 131/79 (96) 130/68 (88) 109/58 (75) Pulse Ox 91 97 97 O2 Delivery Room Air Room Air Room Air Room Air 07/23/17 07/23/17 08:00 08:33 Pulse 70 B/P (MAP) 109/58 O2 Delivery Room Air Intake and Output 07/22/17 07/22/17 07/23/17 15:00 23:00 07:00 Intake Total 1520 ml 320 ml 840 ml Balance 1520 ml 320 ml 840 ml RAHAT BERNSTEIN MD Jul 23, 2017 11:01
--- NOTE | 2017-07-23 13:20 | PDOC ---
Subjective: Subjective: Didn't sleep well, had hip pain. Nausea after eating this morning, not much appetite this afternoon. No BM - reminds me she had three large stools prior to admission. Objective: Vital Signs: Vital Signs Date Time Temp Pulse Resp B/P (MAP) Pulse Ox O2 Delivery O2 Flow Rate FiO2 07/23/17 11:00 98.1 71 18 113/55 (74) 95 Room Air 98.1 Labs: Laboratory Tests Test 07/22/17 16:34 07/22/17 21:28 07/23/17 07:20 07/23/17 11:05 Glucose (Fingerstick) 140 mg/dL (70-99) 136 mg/dL (70-99) 90 mg/dL (70-99) 166 mg/dL (70-99) PE: GEN: NAD LUNGS: CTAB HEART: RRR ABD: NABS, S/ND/NT NEURO/PSYCH: A & O 3 A/P: Abnormal CT w/ mural rectal thickening -lower abd/rectal pain resolved -constipation ---> history of this, worse prior to admission, three large hard stools at home after enema -"colonoscopy" 40 years ago -on IV atbx Nausea, decreased appetite -s/p jonathan EMILY -Hgb from 10 to 8 -has PO iron ordered QD -- Continue treatment for constipation, outpt colonoscopy. Empiric acid-cardiac tech. PAIGE SANTILLAN Jul 23, 2017 13:20
[2017-07-23] MEDS ORDERED: BISACODYL 5 MG TABLET.DR. PO ONE (13:30)
[2017-07-23] MEDS: CAPSAICIN 0.025% TOPICAL CREAM 60GM TUBE. TP SCH ×3 (14:22→21:00)
[2017-07-23] MEDS: PANTOPRAZOLE 40 MG TABLET.DR. PO SCH (14:26)
[2017-07-23 15:00] VITALS: BP 119/53
[2017-07-23 19:00] VITALS: BP 140/59
[2017-07-23] MEDS: INSULIN DETEMIR 300 UNITS/3 ML INSULN.PEN. SQ SCH (21:24)
[2017-07-23 23:00] VITALS: BP 163/68
[2017-07-24 03:00] VITALS: BP 134/61
[2017-07-24] MEDS: diphenhydrAMINE HCL 25 MG CAPSULE PO PRN (03:02)
[2017-07-24 04:56] LABS: BASO % 1 % (0-3); EOS % 5 % (0-3); HEMATOCRIT 28.1 % (36.0-47.0); HEMOGLOBIN 8.9 g/dL (12.0-15.5); LYMPH # 2.4 x10^3/uL (1.0-4.8); LYMPH % 32 % (24-48); MEAN CORPUSCULAR HEMOGLOBIN 30 pg (25-35); MEAN CORPUSCULAR HGB CONC 32 g/dL (31-37); MEAN CORPUSCULAR VOLUME 94 fL (79-100); MONO % 9 % (0-9); NEUT % 54 % (31-73); PLATELET COUNT 194 x10^3/uL (140-400); RED BLOOD COUNT 2.99 x10^6/uL (3.50-5.40); RED CELL DISTRIBUTION WIDTH 14.3 % (11.5-14.5); WHITE BLOOD COUNT 7.5 x10^3/uL (4.0-11.0)
[2017-07-24 05:12] LABS: CALCIUM 8.4 mg/dL (8.5-10.1); GFR 64.6; POTASSIUM 3.7 mmol/L (3.5-5.1)
[2017-07-24 07:00] VITALS: BP 141/70
[2017-07-24] MEDS: PANTOPRAZOLE 40 MG TABLET.DR. PO SCH (07:07)
[2017-07-24] MEDS: INSULIN ASPART 300 UNITS/3 ML INSULN.PEN SQ SCH ×3 (08:00→17:00)
[2017-07-24] MEDS: ASPIRIN ENTERIC COATED 81 MG TABLET.DR. PO SCH (08:05)
[2017-07-24] MEDS: DOXYCYCLINE HYCLATE 100 MG TABLET PO SCH ×2 (08:05→21:57)
[2017-07-24] MEDS: DOCUSATE SODIUM 100 MG CAPSULE. PO SCH ×2 (08:06→21:57)
[2017-07-24] MEDS: CAPSAICIN 0.025% TOPICAL CREAM 60GM TUBE. TP SCH ×3 (08:06→21:58)
[2017-07-24] MEDS: CETIRIZINE HCL 10 MG TABLET. PO SCH (08:06)
[2017-07-24] MEDS: FERROUS SULFATE 325 MG TABLET. PO SCH (08:06)
[2017-07-24] MEDS: LISINOPRIL 10 MG TABLET PO SCH (08:06)
[2017-07-24] MEDS: POLYETHYLENE GLYCOL 3350 17 GM PACKET. PO SCH ×2 (08:06→21:57)
[2017-07-24] MEDS: CIPROFLOXACIN 400MG PREMIX 200 ML IV SCH ×2 (08:07→21:57)
[2017-07-24] MEDS: ONDANSETRON PF 4 MG/2 ML VIAL. IV PRN (09:24)
--- NOTE | 2017-07-24 10:58 | PDOC ---
Subjective: Subjective: Not feeling well, has nausea, not hungry. Doesn't feel the need to stool. No abd pain or dizziness. Objective: Vital Signs: Vital Signs Date Time Temp Pulse Resp B/P (MAP) Pulse Ox O2 Delivery O2 Flow Rate FiO2 07/24/17 08:06 72 134/61 07/24/17 08:00 Room Air 2.0 07/24/17 07:00 97.8 16 95 97.8 Labs: Laboratory Tests Test 07/23/17 11:05 07/23/17 16:37 07/23/17 20:16 07/24/17 07:18 Glucose (Fingerstick) 166 mg/dL (70-99) 118 mg/dL (70-99) 136 mg/dL (70-99) 54 mg/dL (70-99) Test 07/24/17 08:11 Glucose (Fingerstick) 98 mg/dL (70-99) PE: GEN: NAD LUNGS: CTAB HEART: RRR ABD: NABS, S/ND/NT NEURO/PSYCH: A & O 3 A/P: Abnormal CT w/ rectal thickening -lower abd/rectal pain resolved; on IV atbx -h/o constipation; large stools w/ enema prior to admission -"colonoscopy" 40 years ago Nausea, decreased appetite -s/p jonathan EMILY -- Will review additional recs re: nausea w/ Dr. Jones. ?GES Outpt colonoscopy. PAIGE SANTILLAN Jul 24, 2017 10:58
[2017-07-24 11:00] VITALS: BP 141/59
--- NOTE | 2017-07-24 11:17 | PDOC ---
PROGRESS NOTES Chief Complaint Chief Complaint 1. Proctitis 2. Urinary distention 3. SIRS, leukocytosis, no sepsis 4. HTN DM2 insulin req - controlled 5. MIld PCM 6. Acute bronchitis History of Present Illness History of Present Illness claims still some nausea BUt in my opinion she looks better Does not like certain foods here WBC normal VS no fevers More conversant today I did mention dc plans, at the latest tmr - she says she is unsure NO sleep - benadryl 2 tabs did not work Iron indices show EMILY Plan: Cont ferrous sulfate Mylanta, zofran etc AMbien tonight COnt abx Aim dc tmr Vitals Vitals Vital Signs Date Time Temp Pulse Resp B/P (MAP) Pulse Ox O2 Delivery O2 Flow Rate FiO2 07/24/17 08:06 72 134/61 07/24/17 08:00 Room Air 2.0 07/24/17 07:00 97.8 16 95 97.8 Physical Exam General: Alert, Oriented X3, Cooperative, No acute distress Heart: Regular rate, Normal S1, Normal S2, No murmurs Abdomen: Normal bowel sounds, Soft, No tenderness, No hepatosplenomegaly, No masses Extremities: No clubbing, No cyanosis Skin: No rashes, No breakdown Labs LABS Laboratory Tests Test 07/23/17 16:37 07/23/17 20:16 07/24/17 03:53 07/24/17 07:18 Glucose (Fingerstick) 118 mg/dL (70-99) 136 mg/dL (70-99) 54 mg/dL (70-99) White Blood Count 7.5 x10^3/uL (4.0-11.0) Red Blood Count 2.99 x10^6/uL (3.50-5.40) Hemoglobin 8.9 g/dL (12.0-15.5) Hematocrit 28.1 % (36.0-47.0) Mean Corpuscular Volume 94 fL (79-100) Mean Corpuscular Hemoglobin 30 pg (25-35) Mean Corpuscular Hemoglobin Concent 32 g/dL (31-37) Red Cell Distribution Width 14.3 % (11.5-14.5) Platelet Count 194 x10^3/uL (140-400) Neutrophils (%) (Auto) 54 % (31-73) Lymphocytes (%) (Auto) 32 % (24-48) Monocytes (%) (Auto) 9 % (0-9) Eosinophils (%) (Auto) 5 % (0-3) Basophils (%) (Auto) 1 % (0-3) Neutrophils # (Auto) 4.0 x10^3uL (1.8-7.7) Lymphocytes # (Auto) 2.4 x10^3/uL (1.0-4.8) Monocytes # (Auto) 0.7 x10^3/uL (0.0-1.1) Eosinophils # (Auto) 0.3 x10^3/uL (0.0-0.7) Basophils # (Auto) 0.0 x10^3/uL (0.0-0.2) Sodium Level 141 mmol/L (136-145) Potassium Level 3.7 mmol/L (3.5-5.1) Chloride Level 108 mmol/L (98-107) Carbon Dioxide Level 28 mmol/L (21-32) Anion Gap 5 (6-14) Blood Urea Nitrogen 10 mg/dL (7-20) Creatinine 1.0 mg/dL (0.6-1.0) Estimated GFR (Cockcroft-Gault) 64.6 Glucose Level 52 mg/dL (70-99) Calcium Level 8.4 mg/dL (8.5-10.1) Test 07/24/17 08:11 07/24/17 10:48 Glucose (Fingerstick) 98 mg/dL (70-99) 101 mg/dL (70-99) Review of Systems Review of Systems nausea, no abd pain, cp, soa fevers Assessment and Plan Assessmemt and Plan Problems Medical Problems: (1) Abdominal pain Status: Acute (2) Proctitis Status: Acute Problems: Comment Review of Relevant I have reviewed the following items subha (where applicable) has been applied. Labs Laboratory Tests Test 07/22/17 16:34 07/22/17 18:20 07/22/17 21:28 07/23/17 03:45 Glucose (Fingerstick) 140 mg/dL (70-99) 136 mg/dL (70-99) Iron Level 15 ug/dL (50-170) Total Iron Binding Capacity 190 ug/dL (250-450) Iron Saturation 8 % (15-34) Vitamin B12 Level 896 pg/mL (247-911) Serum Folate 6.31 ng/ml (3.2-20.0) White Blood Count 6.9 x10^3/uL (4.0-11.0) Red Blood Count 2.85 x10^6/uL (3.50-5.40) Hemoglobin 8.7 g/dL (12.0-15.5) Hematocrit 27.0 % (36.0-47.0) Mean Corpuscular Volume 95 fL (79-100) Mean Corpuscular Hemoglobin 31 pg (25-35) Mean Corpuscular Hemoglobin Concent 32 g/dL (31-37) Red Cell Distribution Width 14.6 % (11.5-14.5) Platelet Count 183 x10^3/uL (140-400) Neutrophils (%) (Auto) 66 % (31-73) Lymphocytes (%) (Auto) 24 % (24-48) Monocytes (%) (Auto) 7 % (0-9) Eosinophils (%) (Auto) 2 % (0-3) Basophils (%) (Auto) 1 % (0-3) Neutrophils # (Auto) 4.5 x10^3uL (1.8-7.7) Lymphocytes # (Auto) 1.7 x10^3/uL (1.0-4.8) Monocytes # (Auto) 0.5 x10^3/uL (0.0-1.1) Eosinophils # (Auto) 0.2 x10^3/uL (0.0-0.7) Basophils # (Auto) 0.0 x10^3/uL (0.0-0.2) Erythrocyte Sedimentation Rate 70 (0-25) Reticulocyte Count (auto) 1.9 % (0.5-2.5) Sodium Level 142 mmol/L (136-145) Potassium Level 4.0 mmol/L (3.5-5.1) Chloride Level 110 mmol/L (98-107) Carbon Dioxide Level 26 mmol/L (21-32) Anion Gap 6 (6-14) Blood Urea Nitrogen 12 mg/dL (7-20) Creatinine 0.9 mg/dL (0.6-1.0) Estimated GFR (Cockcroft-Gault) 72.9 Glucose Level 119 mg/dL (70-99) Calcium Level 8.3 mg/dL (8.5-10.1) Test 07/23/17 07:20 07/23/17 11:05 07/23/17 16:37 07/23/17 20:16 Glucose (Fingerstick) 90 mg/dL (70-99) 166 mg/dL (70-99) 118 mg/dL (70-99) 136 mg/dL (70-99) Test 07/24/17 03:53 07/24/17 07:18 07/24/17 08:11 07/24/17 10:48 White Blood Count 7.5 x10^3/uL (4.0-11.0) Red Blood Count 2.99 x10^6/uL (3.50-5.40) Hemoglobin 8.9 g/dL (12.0-15.5) Hematocrit 28.1 % (36.0-47.0) Mean Corpuscular Volume 94 fL (79-100) Mean Corpuscular Hemoglobin 30 pg (25-35) Mean Corpuscular Hemoglobin Concent 32 g/dL (31-37) Red Cell Distribution Width 14.3 % (11.5-14.5) Platelet Count 194 x10^3/uL (140-400) Neutrophils (%) (Auto) 54 % (31-73) Lymphocytes (%) (Auto) 32 % (24-48) Monocytes (%) (Auto) 9 % (0-9) Eosinophils (%) (Auto) 5 % (0-3) Basophils (%) (Auto) 1 % (0-3) Neutrophils # (Auto) 4.0 x10^3uL (1.8-7.7) Lymphocytes # (Auto) 2.4 x10^3/uL (1.0-4.8) Monocytes # (Auto) 0.7 x10^3/uL (0.0-1.1) Eosinophils # (Auto) 0.3 x10^3/uL (0.0-0.7) Basophils # (Auto) 0.0 x10^3/uL (0.0-0.2) Sodium Level 141 mmol/L (136-145) Potassium Level 3.7 mmol/L (3.5-5.1) Chloride Level 108 mmol/L (98-107) Carbon Dioxide Level 28 mmol/L (21-32) Anion Gap 5 (6-14) Blood Urea Nitrogen 10 mg/dL (7-20) Creatinine 1.0 mg/dL (0.6-1.0) Estimated GFR (Cockcroft-Gault) 64.6 Glucose Level 52 mg/dL (70-99) Calcium Level 8.4 mg/dL (8.5-10.1) Glucose (Fingerstick) 54 mg/dL (70-99) 98 mg/dL (70-99) 101 mg/dL (70-99) Laboratory Tests Test 07/23/17 16:37 07/23/17 20:16 07/24/17 03:53 07/24/17 07:18 Glucose (Fingerstick) 118 mg/dL (70-99) 136 mg/dL (70-99) 54 mg/dL (70-99) White Blood Count 7.5 x10^3/uL (4.0-11.0) Red Blood Count 2.99 x10^6/uL (3.50-5.40) Hemoglobin 8.9 g/dL (12.0-15.5) Hematocrit 28.1 % (36.0-47.0) Mean Corpuscular Volume 94 fL (79-100) Mean Corpuscular Hemoglobin 30 pg (25-35) Mean Corpuscular Hemoglobin Concent 32 g/dL (31-37) Red Cell Distribution Width 14.3 % (11.5-14.5) Platelet Count 194 x10^3/uL (140-400) Neutrophils (%) (Auto) 54 % (31-73) Lymphocytes (%) (Auto) 32 % (24-48) Monocytes (%) (Auto) 9 % (0-9) Eosinophils (%) (Auto) 5 % (0-3) Basophils (%) (Auto) 1 % (0-3) Neutrophils # (Auto) 4.0 x10^3uL (1.8-7.7) Lymphocytes # (Auto) 2.4 x10^3/uL (1.0-4.8) Monocytes # (Auto) 0.7 x10^3/uL (0.0-1.1) Eosinophils # (Auto) 0.3 x10^3/uL (0.0-0.7) Basophils # (Auto) 0.0 x10^3/uL (0.0-0.2) Sodium Level 141 mmol/L (136-145) Potassium Level 3.7 mmol/L (3.5-5.1) Chloride Level 108 mmol/L (98-107) Carbon Dioxide Level 28 mmol/L (21-32) Anion Gap 5 (6-14) Blood Urea Nitrogen 10 mg/dL (7-20) Creatinine 1.0 mg/dL (0.6-1.0) Estimated GFR (Cockcroft-Gault) 64.6 Glucose Level 52 mg/dL (70-99) Calcium Level 8.4 mg/dL (8.5-10.1) Test 07/24/17 08:11 07/24/17 10:48 Glucose (Fingerstick) 98 mg/dL (70-99) 101 mg/dL (70-99) Microbiology 07/21/17 Blood Culture - Preliminary, Resulted NO GROWTH AFTER 2 DAYS 07/21/17 Urine Culture - Final, Complete 07/21/17 Urine Culture Result 1 (MASHA) - Final, Complete Medications Current Medications Hydromorphone HCl (Dilaudid) 0.5 mg PRN Q15MIN PRN IV/SQ PAIN GREATER THAN 3/ 10 Last administered on 07/21/17 21:50; Start 07/21/17 at 21:30; Stop at 21:29; Status DC Sodium Chloride 1,000 ml @ 1,000 mls/hr Q1H IV Last administered on 21:49; Start 07/21/17 at 21:30; Stop 07/21/17 at 22:29; Status DC Sodium Chloride (Normal Saline Flush) 10 ml QSHIFT PRN IV AFTER MEDS AND BLOOD DRAWS Last administered on 07/21/17 21:50; Start 07/21/17 at 21:30 Ondansetron HCl (Zofran) 4 mg 1X ONCE IV Last administered on 07/21/17 21:50 ; Start 07/21/17 at 21:30; Stop 07/21/17 at 21:36; Status DC Ciprofloxacin/ Dextrose 200 ml @ 200 mls/hr Q12HR IV Last administered on 08:07; Start 07/22/17 at 09:00 Metronidazole 100 ml @ 100 mls/hr Q8HRS IV Last administered on 07/24/17 06: 16; Start 07/22/17 at 06:00 Ondansetron HCl (Zofran) 4 mg PRN Q8HRS PRN IV NAUSEA/VOMITING Last administered on 07/22/17 15:45; Start 07/21/17 at 22:45; Stop 07/22/17 at 22 :44; Status DC Fentanyl Citrate (Fentanyl 2ml Vial) 50 mcg PRN Q2HR PRN IV PAIN; Start at 22:45; Stop 07/22/17 at 22:44; Status DC Sodium Chloride 1,000 ml @ 80 mls/hr [id number] IV Last administered on 13:37; Start 07/21/17 at 22:45; Stop 07/22/17 at 22:44; Status DC Acetaminophen (Tylenol) 650 mg PRN Q4HRS PRN PO FEVER Last administered on 08:28; Start 07/21/17 at 22:45; Stop 07/22/17 at 22:44; Status DC Ciprofloxacin/ Dextrose 200 ml @ 200 mls/hr ONCE ONCE IV Last administered on 07/21/17 23:25; Start 07/21/17 at 23:00; Stop 07/21/17 at 23:59; Status DC Metronidazole 100 ml @ 100 mls/hr ONCE ONCE IV Last administered on 01:08; Start 07/22/17 at 00:00; Stop 07/22/17 at 00:59; Status DC Aspirin (Ecotrin) 81 mg DAILY PO Last administered on 07/24/17 08:05; Start 07/22/17 at 14:00 Lisinopril (Prinivil) 10 mg DAILY PO Last administered on 07/24/17 08:06; Start 07/22/17 at 14:00 Non-Formulary Medication 1 puff PRN Q4HRS PRN IH FOR ASTHMA; Start 07/22/17 at 13:30; Status UNV Insulin Detemir (Levemir) 35 units QHS SQ Last administered on 07/23/17 21:24 ; Start 07/22/17 at 21:00; Stop 07/24/17 at 10:53; Status DC Insulin Aspart (NovoLOG) 0-9 UNITS TIDWMEALS SQ ; Start 07/22/17 at 17:00 Dextrose (Dextrose 50%-Water Syringe) 12.5 gm PRN Q15MIN PRN IV SEE COMMENTS; Start 07/22/17 at 13:30 Doxycycline Hyclate (Vibra-Tab) 100 mg BID PO Last administered on 07/24/17 08:05; Start 07/22/17 at 14:00 Phenylephrine HCl (Hemorrhoidal) 1 supp PRN Q12HR PRN CO RECTAL PAIN; Start at 13:30 Docusate Sodium (Colace) 100 mg BID PO Last administered on 07/24/17 08:06; Start 07/22/17 at 14:00 Polyethylene Glycol (miraLAX PACKET) 17 gm DAILY PO Last administered on 08:29; Start 07/22/17 at 14:00; Stop 07/23/17 at 13:22; Status DC Magnesium Hydroxide (Milk Of Magnesia) 2,400 mg PRN DAILY PRN PO CONSTIPATION; Start 07/22/17 at 13:30 Albuterol Sulfate (Ventolin Neb Soln) 2.5 mg PRN Q4HRS PRN NEB SHORTNESS OF BREATH Last administered on 07/22/17 16:15; Start 07/22/17 at 13:45 Cetirizine HCl (ZyrTEC) 10 mg DAILY PO Last administered on 07/24/17 08:06; Start 07/22/17 at 14:15 Ibuprofen (Motrin) 400 mg PRN Q6HRS PRN PO INFLAMMATION Last administered on 05:07; Start 07/23/17 at 04:45; Stop 07/23/17 at 09:18; Status DC Ferrous Sulfate (Feosol) 325 mg DAILYWBKFT PO Last administered on 07/24/17 08:06; Start 07/23/17 at 10:00 Ondansetron HCl (Zofran) 4 mg PRN Q8HRS PRN IV NAUSEA/VOMITING Last administered on 07/23/17 09:34; Start 07/23/17 at 09:30; Stop 07/23/17 at 11 :00; Status DC Ondansetron HCl (Zofran) 4 mg PRN Q6HRS PRN IV NAUSEA/VOMITING Last administered on 07/24/17 09:24; Start 07/23/17 at 11:00 Diphenhydramine HCl (Benadryl) 50 mg PRN QHS PRN PO INSOMNIA Last administered on 07/24/17 03:02; Start 07/23/17 at 11:00 Promethazine HCl 12.5 mg/Sodium Chloride 50.5 ml @ 151.5 mls/ hr PRN Q6HRS PRN IV NAUSEA/VOMITING; Start 07/23/17 at 11:00 Al Hydroxide/Mg Hydroxide (Mylanta Plus Xs) 30 ml PRN Q2HR PRN PO HEARTBURN / GAS; Start 07/23/17 at 11:00 Capsaicin (Zostrix) 1 dilcia TID TP Last administered on 07/24/17 08:06; Start 07/23/17 at 11:30 Polyethylene Glycol (miraLAX PACKET) 17 gm BID PO Last administered on 08:06; Start 07/23/17 at 21:00 Pantoprazole Sodium (Protonix) 40 mg DAILYAC PO Last administered on 07:07; Start 07/23/17 at 14:00 Bisacodyl (Dulcolax Tab) 5 mg 1X ONCE PO Last administered on 07/23/17 14:26 ; Start 07/23/17 at 13:30; Stop 07/23/17 at 13:31; Status DC Insulin Detemir (Levemir) 20 units QHS SQ ; Start 07/24/17 at 21:00 Active Scripts Active Reported Ibuprofen 400 Mg Tablet 400 Mg PO PRN Q6HRS PRN Proventil Hfa Inhaler (Albuterol Sulfate) 6.7 Gm Hfa.aer.ad 1 Puff IH PRN Q4HRS PRN Lantus Solostar (Insulin Glargine,Hum.rec.anlog) 100 Unit/1 Ml Insuln.pen 35 Unit SQ QHS Novolog Flexpen (Insulin Aspart) 100 Unit/1 Ml Insuln.pen 1 Unit SQ Lisinopril 10 Mg Tablet 1 Tab PO DAILY Aspir 81 (Aspirin) 81 Mg Tablet.dr 1 Tab PO DAILY Vitals/I & O Vital Sign - Last 24 Hours 07/23/17 07/23/17 07/23/17 07/23/17 15:00 19:00 20:15 23:00 Temp 98.3 98.2 98.1 98.3 98.2 98.1 Pulse 66 71 73 Resp 18 18 18 B/P (MAP) 119/53 (75) 140/59 (86) 163/68 (99) Pulse Ox 97 94 94 O2 Delivery Room Air Room Air Room Air Room Air 07/24/17 07/24/17 07/24/17 07/24/17 03:00 07:00 08:00 08:06 Temp 98.6 97.8 98.6 97.8 Pulse 72 68 72 Resp 18 16 B/P (MAP) 134/61 (85) 141/70 (93) 134/61 Pulse Ox 98 95 O2 Delivery Room Air Room Air Room Air O2 Flow Rate 2.0 Intake and Output 07/23/17 07/23/17 07/24/17 15:00 23:00 07:00 Intake Total 320 ml 620 ml 0 ml Balance 320 ml 620 ml 0 ml RAHAT BERNSTEIN MD Jul 24, 2017 11:17
[2017-07-24] MEDS ORDERED: MAGNESIUM HYDROXIDE 2,400 MG/30 ML ORAL.SUSP. PO ONE (11:30)
[2017-07-24 15:00] VITALS: BP 135/60
[2017-07-24 19:00] VITALS: BP 112/52
[2017-07-24] MEDS: INSULIN DETEMIR 300 UNITS/3 ML INSULN.PEN. SQ SCH (21:00)
[2017-07-24 23:00] VITALS: BP 107/62
[2017-07-25] MEDS: ONDANSETRON PF 4 MG/2 ML VIAL. IV PRN ×3 (00:11→12:00)
[2017-07-25 03:00] VITALS: BP 136/55
[2017-07-25] MEDS: diphenhydrAMINE HCL 25 MG CAPSULE PO PRN (03:03)
[2017-07-25] MEDS: metroNIDAZOLE 500 MG TABLET PO SCH ×3 (05:53→21:00)
[2017-07-25 07:00] VITALS: BP 144/54
[2017-07-25] MEDS: INSULIN ASPART 300 UNITS/3 ML INSULN.PEN SQ SCH ×3 (08:00→17:00)
--- NOTE | 2017-07-25 08:55 | PDOC ---
PROGRESS NOTES Chief Complaint Chief Complaint 1. Proctitis 2. Urinary distention 3. SIRS, leukocytosis, no sepsis 4. HTN DM2 insulin req - controlled 5. MIld PCM 6. Acute bronchitis History of Present Illness History of Present Illness NUmbers look good but claims still nausea Picky about her food Does not feel like she is ready for home today Still has not had BM Plan: Linzess PO Enema now ALready on PO abx TArget home tmr - i dw her Will need script for ferrous sulfate (EMILY on work up) Edi CHOUDHARY Renetta Vitals Vitals Vital Signs Date Time Temp Pulse Resp B/P (MAP) Pulse Ox O2 Delivery O2 Flow Rate FiO2 07/25/17 07:00 98.1 71 18 144/54 (84) 94 Room Air 98.1 07/24/17 20:00 2.0 Physical Exam General: Alert, Oriented X3, Cooperative, No acute distress Heart: Regular rate, Normal S1, Normal S2, No murmurs Abdomen: Normal bowel sounds, Soft, No tenderness, No hepatosplenomegaly, No masses Extremities: No clubbing, No cyanosis Skin: No rashes, No breakdown Labs LABS Laboratory Tests Test 07/24/17 10:48 07/24/17 17:16 07/24/17 21:01 07/25/17 04:11 Glucose (Fingerstick) 101 mg/dL (70-99) 95 mg/dL (70-99) 137 mg/dL (70-99) 107 mg/dL (70-99) Test 07/25/17 07:32 Glucose (Fingerstick) 116 mg/dL (70-99) Review of Systems Review of Systems abd soreness, constipaed, nasuea, no emesis, no CP, no SOA Assessment and Plan Assessmemt and Plan Problems Medical Problems: (1) Abdominal pain Status: Acute (2) Proctitis Status: Acute Problems: Comment Review of Relevant I have reviewed the following items subha (where applicable) has been applied. Labs Laboratory Tests Test 07/23/17 11:05 07/23/17 16:37 07/23/17 20:16 07/24/17 03:53 Glucose (Fingerstick) 166 mg/dL (70-99) 118 mg/dL (70-99) 136 mg/dL (70-99) White Blood Count 7.5 x10^3/uL (4.0-11.0) Red Blood Count 2.99 x10^6/uL (3.50-5.40) Hemoglobin 8.9 g/dL (12.0-15.5) Hematocrit 28.1 % (36.0-47.0) Mean Corpuscular Volume 94 fL (79-100) Mean Corpuscular Hemoglobin 30 pg (25-35) Mean Corpuscular Hemoglobin Concent 32 g/dL (31-37) Red Cell Distribution Width 14.3 % (11.5-14.5) Platelet Count 194 x10^3/uL (140-400) Neutrophils (%) (Auto) 54 % (31-73) Lymphocytes (%) (Auto) 32 % (24-48) Monocytes (%) (Auto) 9 % (0-9) Eosinophils (%) (Auto) 5 % (0-3) Basophils (%) (Auto) 1 % (0-3) Neutrophils # (Auto) 4.0 x10^3uL (1.8-7.7) Lymphocytes # (Auto) 2.4 x10^3/uL (1.0-4.8) Monocytes # (Auto) 0.7 x10^3/uL (0.0-1.1) Eosinophils # (Auto) 0.3 x10^3/uL (0.0-0.7) Basophils # (Auto) 0.0 x10^3/uL (0.0-0.2) Sodium Level 141 mmol/L (136-145) Potassium Level 3.7 mmol/L (3.5-5.1) Chloride Level 108 mmol/L (98-107) Carbon Dioxide Level 28 mmol/L (21-32) Anion Gap 5 (6-14) Blood Urea Nitrogen 10 mg/dL (7-20) Creatinine 1.0 mg/dL (0.6-1.0) Estimated GFR (Cockcroft-Gault) 64.6 Glucose Level 52 mg/dL (70-99) Calcium Level 8.4 mg/dL (8.5-10.1) Test 07/24/17 07:18 07/24/17 08:11 07/24/17 10:48 07/24/17 17:16 Glucose (Fingerstick) 54 mg/dL (70-99) 98 mg/dL (70-99) 101 mg/dL (70-99) 95 mg/dL (70-99) Test 07/24/17 21:01 07/25/17 04:11 07/25/17 07:32 Glucose (Fingerstick) 137 mg/dL (70-99) 107 mg/dL (70-99) 116 mg/dL (70-99) Laboratory Tests Test 07/24/17 10:48 07/24/17 17:16 07/24/17 21:01 07/25/17 04:11 Glucose (Fingerstick) 101 mg/dL (70-99) 95 mg/dL (70-99) 137 mg/dL (70-99) 107 mg/dL (70-99) Test 07/25/17 07:32 Glucose (Fingerstick) 116 mg/dL (70-99) Microbiology 07/21/17 Blood Culture - Preliminary, Resulted NO GROWTH AFTER 3 DAYS 07/21/17 Urine Culture - Final, Complete 07/21/17 Urine Culture Result 1 (MASHA) - Final, Complete Medications Current Medications Hydromorphone HCl (Dilaudid) 0.5 mg PRN Q15MIN PRN IV/SQ PAIN GREATER THAN 3/ 10 Last administered on 07/21/17 21:50; Start 07/21/17 at 21:30; Stop at 21:29; Status DC Sodium Chloride 1,000 ml @ 1,000 mls/hr Q1H IV Last administered on 21:49; Start 07/21/17 at 21:30; Stop 07/21/17 at 22:29; Status DC Sodium Chloride (Normal Saline Flush) 10 ml QSHIFT PRN IV AFTER MEDS AND BLOOD DRAWS Last administered on 07/21/17 21:50; Start 07/21/17 at 21:30 Ondansetron HCl (Zofran) 4 mg 1X ONCE IV Last administered on 07/21/17 21:50 ; Start 07/21/17 at 21:30; Stop 07/21/17 at 21:36; Status DC Ciprofloxacin/ Dextrose 200 ml @ 200 mls/hr Q12HR IV Last administered on 21:57; Start 07/22/17 at 09:00; Stop 07/25/17 at 04:19; Status DC Metronidazole 100 ml @ 100 mls/hr Q8HRS IV Last administered on 07/25/17 00: 21; Start 07/22/17 at 06:00; Stop 07/25/17 at 04:19; Status DC Ondansetron HCl (Zofran) 4 mg PRN Q8HRS PRN IV NAUSEA/VOMITING Last administered on 07/22/17 15:45; Start 07/21/17 at 22:45; Stop 07/22/17 at 22 :44; Status DC Fentanyl Citrate (Fentanyl 2ml Vial) 50 mcg PRN Q2HR PRN IV PAIN; Start at 22:45; Stop 07/22/17 at 22:44; Status DC Sodium Chloride 1,000 ml @ 80 mls/hr [id number] IV Last administered on 13:37; Start 07/21/17 at 22:45; Stop 07/22/17 at 22:44; Status DC Acetaminophen (Tylenol) 650 mg PRN Q4HRS PRN PO FEVER Last administered on 08:28; Start 07/21/17 at 22:45; Stop 07/22/17 at 22:44; Status DC Ciprofloxacin/ Dextrose 200 ml @ 200 mls/hr ONCE ONCE IV Last administered on 07/21/17 23:25; Start 07/21/17 at 23:00; Stop 07/21/17 at 23:59; Status DC Metronidazole 100 ml @ 100 mls/hr ONCE ONCE IV Last administered on 01:08; Start 07/22/17 at 00:00; Stop 07/22/17 at 00:59; Status DC Aspirin (Ecotrin) 81 mg DAILY PO Last administered on 07/24/17 08:05; Start 07/22/17 at 14:00 Lisinopril (Prinivil) 10 mg DAILY PO Last administered on 07/24/17 08:06; Start 07/22/17 at 14:00 Non-Formulary Medication 1 puff PRN Q4HRS PRN IH FOR ASTHMA; Start 07/22/17 at 13:30; Status UNV Insulin Detemir (Levemir) 35 units QHS SQ Last administered on 07/23/17 21:24 ; Start 07/22/17 at 21:00; Stop 07/24/17 at 10:53; Status DC Insulin Aspart (NovoLOG) 0-9 UNITS TIDWMEALS SQ ; Start 07/22/17 at 17:00 Dextrose (Dextrose 50%-Water Syringe) 12.5 gm PRN Q15MIN PRN IV SEE COMMENTS; Start 07/22/17 at 13:30 Doxycycline Hyclate (Vibra-Tab) 100 mg BID PO Last administered on 07/24/17 21:57; Start 07/22/17 at 14:00 Phenylephrine HCl (Hemorrhoidal) 1 supp PRN Q12HR PRN IA RECTAL PAIN; Start at 13:30 Docusate Sodium (Colace) 100 mg BID PO Last administered on 07/24/17 21:57; Start 07/22/17 at 14:00 Polyethylene Glycol (miraLAX PACKET) 17 gm DAILY PO Last administered on 08:29; Start 07/22/17 at 14:00; Stop 07/23/17 at 13:22; Status DC Magnesium Hydroxide (Milk Of Magnesia) 2,400 mg PRN DAILY PRN PO CONSTIPATION; Start 07/22/17 at 13:30 Albuterol Sulfate (Ventolin Neb Soln) 2.5 mg PRN Q4HRS PRN NEB SHORTNESS OF BREATH Last administered on 07/22/17 16:15; Start 07/22/17 at 13:45 Cetirizine HCl (ZyrTEC) 10 mg DAILY PO Last administered on 07/24/17 08:06; Start 07/22/17 at 14:15 Ibuprofen (Motrin) 400 mg PRN Q6HRS PRN PO INFLAMMATION Last administered on 05:07; Start 07/23/17 at 04:45; Stop 07/23/17 at 09:18; Status DC Ferrous Sulfate (Feosol) 325 mg DAILYWBKFT PO Last administered on 07/24/17 08:06; Start 07/23/17 at 10:00 Ondansetron HCl (Zofran) 4 mg PRN Q8HRS PRN IV NAUSEA/VOMITING Last administered on 07/23/17 09:34; Start 07/23/17 at 09:30; Stop 07/23/17 at 11 :00; Status DC Ondansetron HCl (Zofran) 4 mg PRN Q6HRS PRN IV NAUSEA/VOMITING Last administered on 07/25/17 05:59; Start 07/23/17 at 11:00 Diphenhydramine HCl (Benadryl) 50 mg PRN QHS PRN PO INSOMNIA Last administered on 07/25/17 03:03; Start 07/23/17 at 11:00 Promethazine HCl 12.5 mg/Sodium Chloride 50.5 ml @ 151.5 mls/ hr PRN Q6HRS PRN IV NAUSEA/VOMITING; Start 07/23/17 at 11:00 Al Hydroxide/Mg Hydroxide (Mylanta Plus Xs) 30 ml PRN Q2HR PRN PO HEARTBURN / GAS; Start 07/23/17 at 11:00 Capsaicin (Zostrix) 1 dilcia TID TP Last administered on 07/24/17 21:58; Start 07/23/17 at 11:30 Polyethylene Glycol (miraLAX PACKET) 17 gm BID PO Last administered on 21:57; Start 07/23/17 at 21:00 Pantoprazole Sodium (Protonix) 40 mg DAILYAC PO Last administered on 07:07; Start 07/23/17 at 14:00 Bisacodyl (Dulcolax Tab) 5 mg 1X ONCE PO Last administered on 07/23/17 14:26 ; Start 07/23/17 at 13:30; Stop 07/23/17 at 13:31; Status DC Insulin Detemir (Levemir) 20 units QHS SQ ; Start 07/24/17 at 21:00 Magnesium Hydroxide (Milk Of Magnesia) 2,400 mg 1X ONCE PO Last administered on 07/24/17 11:46; Start 07/24/17 at 11:30; Stop 07/24/17 at 11:31; Status DC Ciprofloxacin (Cipro) 500 mg BID PO ; Start 07/25/17 at 09:00 Metronidazole (Flagyl) 500 mg Q8HRS PO Last administered on 07/25/17 05:53; Start 07/25/17 at 06:00 Active Scripts Active Reported Ibuprofen 400 Mg Tablet 400 Mg PO PRN Q6HRS PRN Proventil Hfa Inhaler (Albuterol Sulfate) 6.7 Gm Hfa.aer.ad 1 Puff IH PRN Q4HRS PRN Lantus Solostar (Insulin Glargine,Hum.rec.anlog) 100 Unit/1 Ml Insuln.pen 35 Unit SQ QHS Novolog Flexpen (Insulin Aspart) 100 Unit/1 Ml Insuln.pen 1 Unit SQ Lisinopril 10 Mg Tablet 1 Tab PO DAILY Aspir 81 (Aspirin) 81 Mg Tablet.dr 1 Tab PO DAILY Vitals/I & O Vital Sign - Last 24 Hours 07/24/17 07/24/17 07/24/17 07/24/17 11:00 15:00 19:00 20:00 Temp 97.7 97.7 99.1 97.7 97.7 99.1 Pulse 69 70 73 Resp 18 18 18 B/P (MAP) 141/59 (86) 135/60 (85) 112/52 (72) Pulse Ox 99 98 96 O2 Delivery Room Air Room Air Room Air Room Air O2 Flow Rate 2.0 07/24/17 07/25/17 07/25/17 23:00 03:00 07:00 Temp 98.1 98.4 98.1 98.1 98.4 98.1 Pulse 69 71 71 Resp 20 18 18 B/P (MAP) 107/62 (77) 136/55 (82) 144/54 (84) Pulse Ox 96 92 94 O2 Delivery Room Air Room Air Room Air Intake and Output 07/24/17 07/24/17 07/25/17 15:00 23:00 07:00 Intake Total 280 ml 200 ml 700 ml Output Total 75 ml Balance 280 ml 200 ml 625 ml RAHAT BERNSTEIN MD Jul 25, 2017 08:55
[2017-07-25] MEDS: CAPSAICIN 0.025% TOPICAL CREAM 60GM TUBE. TP SCH ×3 (09:00→21:00)
[2017-07-25] MEDS ORDERED: SODIUM PHOSPHATES 19/7GM 133 ML ENEMA. PR ONE (09:30)
[2017-07-25] MEDS: CETIRIZINE HCL 10 MG TABLET. PO SCH (09:47)
[2017-07-25] MEDS: DOXYCYCLINE HYCLATE 100 MG TABLET PO SCH ×2 (09:47→20:59)
[2017-07-25] MEDS: PANTOPRAZOLE 40 MG TABLET.DR. PO SCH (09:48)
[2017-07-25] MEDS: POLYETHYLENE GLYCOL 3350 17 GM PACKET. PO SCH ×2 (09:48→21:00)
[2017-07-25] MEDS: FERROUS SULFATE 325 MG TABLET. PO SCH (09:48)
[2017-07-25] MEDS: ASPIRIN ENTERIC COATED 81 MG TABLET.DR. PO SCH (09:48)
[2017-07-25] MEDS: DOCUSATE SODIUM 100 MG CAPSULE. PO SCH ×2 (09:48→21:00)
[2017-07-25] MEDS: CIPROFLOXACIN HCL 250 MG TABLET. PO SCH ×2 (09:49→20:59)
[2017-07-25] MEDS: LISINOPRIL 10 MG TABLET PO SCH (09:50)
[2017-07-25 11:00] VITALS: BP 115/65
[2017-07-25] MEDS: LINACLOTIDE 145 MCG CAPSULE. PO SCH (11:45)
[2017-07-25 15:26] VITALS: BP 95/53
[2017-07-25 19:00] VITALS: BP 138/63
[2017-07-25] MEDS: INSULIN DETEMIR 300 UNITS/3 ML INSULN.PEN. SQ SCH (21:11)
[2017-07-25 23:00] VITALS: BP 131/56
[2017-07-26 03:00] VITALS: BP 122/56
[2017-07-26] MEDS: ONDANSETRON PF 4 MG/2 ML VIAL. IV PRN ×2 (03:15→07:58)
[2017-07-26] MEDS: metroNIDAZOLE 500 MG TABLET PO SCH ×3 (05:33→21:34)
[2017-07-26] MEDS: LINACLOTIDE 145 MCG CAPSULE. PO SCH (06:10)
[2017-07-26 07:00] VITALS: BP 138/58
[2017-07-26] MEDS: INSULIN ASPART 300 UNITS/3 ML INSULN.PEN SQ SCH ×3 (08:00→17:00)
[2017-07-26] MEDS: ASPIRIN ENTERIC COATED 81 MG TABLET.DR. PO SCH (08:42)
[2017-07-26] MEDS: CIPROFLOXACIN HCL 250 MG TABLET. PO SCH ×2 (08:42→20:32)
[2017-07-26] MEDS: DOCUSATE SODIUM 100 MG CAPSULE. PO SCH (08:43)
[2017-07-26] MEDS: FERROUS SULFATE 325 MG TABLET. PO SCH (08:43)
[2017-07-26] MEDS: CETIRIZINE HCL 10 MG TABLET. PO SCH (08:43)
[2017-07-26] MEDS: POLYETHYLENE GLYCOL 3350 17 GM PACKET. PO SCH (08:43)
[2017-07-26] MEDS: LISINOPRIL 10 MG TABLET PO SCH (08:43)
[2017-07-26] MEDS: DOXYCYCLINE HYCLATE 100 MG TABLET PO SCH ×2 (08:43→20:31)
[2017-07-26] MEDS: PANTOPRAZOLE 40 MG TABLET.DR. PO SCH (08:43)
[2017-07-26] MEDS: CAPSAICIN 0.025% TOPICAL CREAM 60GM TUBE. TP SCH ×3 (08:44→20:32)
[2017-07-26] MEDS ORDERED: LOPERAMIDE 2 MG CAPSULE PO PRN (10:15)
--- NOTE | 2017-07-26 10:16 | PDOC ---
PROGRESS NOTES Chief Complaint Chief Complaint 1. Proctitis 2. Urinary distention 3. SIRS, leukocytosis, no sepsis 4. HTN DM2 insulin req - controlled 5. MIld PCM 6. Acute bronchitis stable 7. COnstipation now diarrhea History of Present Illness History of Present Illness NUmbers look good but claims still nausea Picky about her food Does not feel like she is ready for home again today Previously constipated, NOW DIARRHEA Plan: stop bowel regimen Imodium Abbott snot want to gob home today bec of this - bargains for tmr No pT needs Dw KENRICK Burton Vitals Vitals Vital Signs Date Time Temp Pulse Resp B/P (MAP) Pulse Ox O2 Delivery O2 Flow Rate FiO2 07/26/17 08:43 67 138/58 07/26/17 07:00 97.9 18 92 Room Air 97.9 Physical Exam General: Alert, Oriented X3, Cooperative, No acute distress Heart: Regular rate, Normal S1, Normal S2, No murmurs Abdomen: Normal bowel sounds, Soft, No tenderness, No hepatosplenomegaly, No masses Extremities: No clubbing, No cyanosis Skin: No rashes, No breakdown Labs LABS Laboratory Tests Test 07/25/17 11:07 07/25/17 16:36 07/25/17 20:54 07/26/17 03:50 Glucose (Fingerstick) 156 mg/dL (70-99) 108 mg/dL (70-99) 198 mg/dL (70-99) Erythrocyte Sedimentation Rate 62 (0-25) Test 07/26/17 07:31 Glucose (Fingerstick) 112 mg/dL (70-99) Review of Systems Review of Systems nausea, abd pain, diarrhea, no fevers, no cp, soa, or emesis Assessment and Plan Assessmemt and Plan Problems Medical Problems: (1) Abdominal pain Status: Acute (2) Proctitis Status: Acute Problems: Comment Review of Relevant I have reviewed the following items subha (where applicable) has been applied. Labs Laboratory Tests Test 07/24/17 10:48 07/24/17 17:16 07/24/17 21:01 07/25/17 04:11 Glucose (Fingerstick) 101 mg/dL (70-99) 95 mg/dL (70-99) 137 mg/dL (70-99) 107 mg/dL (70-99) Test 07/25/17 07:32 07/25/17 11:07 07/25/17 16:36 07/25/17 20:54 Glucose (Fingerstick) 116 mg/dL (70-99) 156 mg/dL (70-99) 108 mg/dL (70-99) 198 mg/dL (70-99) Test 07/26/17 03:50 07/26/17 07:31 Erythrocyte Sedimentation Rate 62 (0-25) Glucose (Fingerstick) 112 mg/dL (70-99) Laboratory Tests Test 07/25/17 11:07 07/25/17 16:36 07/25/17 20:54 07/26/17 03:50 Glucose (Fingerstick) 156 mg/dL (70-99) 108 mg/dL (70-99) 198 mg/dL (70-99) Erythrocyte Sedimentation Rate 62 (0-25) Test 07/26/17 07:31 Glucose (Fingerstick) 112 mg/dL (70-99) Microbiology 07/21/17 Blood Culture - Preliminary, Resulted NO GROWTH AFTER 4 DAYS 07/21/17 Urine Culture - Final, Complete 07/21/17 Urine Culture Result 1 (MASHA) - Final, Complete Medications Current Medications Hydromorphone HCl (Dilaudid) 0.5 mg PRN Q15MIN PRN IV/SQ PAIN GREATER THAN 3/ 10 Last administered on 07/21/17 21:50; Start 07/21/17 at 21:30; Stop at 21:29; Status DC Sodium Chloride 1,000 ml @ 1,000 mls/hr Q1H IV Last administered on 21:49; Start 07/21/17 at 21:30; Stop 07/21/17 at 22:29; Status DC Sodium Chloride (Normal Saline Flush) 10 ml QSHIFT PRN IV AFTER MEDS AND BLOOD DRAWS Last administered on 07/21/17 21:50; Start 07/21/17 at 21:30 Ondansetron HCl (Zofran) 4 mg 1X ONCE IV Last administered on 07/21/17 21:50 ; Start 07/21/17 at 21:30; Stop 07/21/17 at 21:36; Status DC Ciprofloxacin/ Dextrose 200 ml @ 200 mls/hr Q12HR IV Last administered on 21:57; Start 07/22/17 at 09:00; Stop 07/25/17 at 04:19; Status DC Metronidazole 100 ml @ 100 mls/hr Q8HRS IV Last administered on 07/25/17 00: 21; Start 07/22/17 at 06:00; Stop 07/25/17 at 04:19; Status DC Ondansetron HCl (Zofran) 4 mg PRN Q8HRS PRN IV NAUSEA/VOMITING Last administered on 07/22/17 15:45; Start 07/21/17 at 22:45; Stop 07/22/17 at 22 :44; Status DC Fentanyl Citrate (Fentanyl 2ml Vial) 50 mcg PRN Q2HR PRN IV PAIN; Start at 22:45; Stop 07/22/17 at 22:44; Status DC Sodium Chloride 1,000 ml @ 80 mls/hr [id number] IV Last administered on 13:37; Start 07/21/17 at 22:45; Stop 07/22/17 at 22:44; Status DC Acetaminophen (Tylenol) 650 mg PRN Q4HRS PRN PO FEVER Last administered on 08:28; Start 07/21/17 at 22:45; Stop 07/22/17 at 22:44; Status DC Ciprofloxacin/ Dextrose 200 ml @ 200 mls/hr ONCE ONCE IV Last administered on 07/21/17 23:25; Start 07/21/17 at 23:00; Stop 07/21/17 at 23:59; Status DC Metronidazole 100 ml @ 100 mls/hr ONCE ONCE IV Last administered on 01:08; Start 07/22/17 at 00:00; Stop 07/22/17 at 00:59; Status DC Aspirin (Ecotrin) 81 mg DAILY PO Last administered on 07/26/17 08:42; Start 07/22/17 at 14:00 Lisinopril (Prinivil) 10 mg DAILY PO Last administered on 07/26/17 08:43; Start 07/22/17 at 14:00 Non-Formulary Medication 1 puff PRN Q4HRS PRN IH FOR ASTHMA; Start 07/22/17 at 13:30; Status UNV Insulin Detemir (Levemir) 35 units QHS SQ Last administered on 07/23/17 21:24 ; Start 07/22/17 at 21:00; Stop 07/24/17 at 10:53; Status DC Insulin Aspart (NovoLOG) 0-9 UNITS TIDWMEALS SQ ; Start 07/22/17 at 17:00 Dextrose (Dextrose 50%-Water Syringe) 12.5 gm PRN Q15MIN PRN IV SEE COMMENTS; Start 07/22/17 at 13:30 Doxycycline Hyclate (Vibra-Tab) 100 mg BID PO Last administered on 07/26/17 08:43; Start 07/22/17 at 14:00 Phenylephrine HCl (Hemorrhoidal) 1 supp PRN Q12HR PRN AL RECTAL PAIN; Start at 13:30 Docusate Sodium (Colace) 100 mg BID PO Last administered on 07/25/17 21:00; Start 07/22/17 at 14:00 Polyethylene Glycol (miraLAX PACKET) 17 gm DAILY PO Last administered on 08:29; Start 07/22/17 at 14:00; Stop 07/23/17 at 13:22; Status DC Magnesium Hydroxide (Milk Of Magnesia) 2,400 mg PRN DAILY PRN PO CONSTIPATION; Start 07/22/17 at 13:30 Albuterol Sulfate (Ventolin Neb Soln) 2.5 mg PRN Q4HRS PRN NEB SHORTNESS OF BREATH Last administered on 07/22/17 16:15; Start 07/22/17 at 13:45 Cetirizine HCl (ZyrTEC) 10 mg DAILY PO Last administered on 07/26/17 08:43; Start 07/22/17 at 14:15 Ibuprofen (Motrin) 400 mg PRN Q6HRS PRN PO INFLAMMATION Last administered on 05:07; Start 07/23/17 at 04:45; Stop 07/23/17 at 09:18; Status DC Ferrous Sulfate (Feosol) 325 mg DAILYWBKFT PO Last administered on 07/26/17 08:43; Start 07/23/17 at 10:00 Ondansetron HCl (Zofran) 4 mg PRN Q8HRS PRN IV NAUSEA/VOMITING Last administered on 07/23/17 09:34; Start 07/23/17 at 09:30; Stop 07/23/17 at 11 :00; Status DC Ondansetron HCl (Zofran) 4 mg PRN Q6HRS PRN IV NAUSEA/VOMITING Last administered on 07/26/17 07:58; Start 07/23/17 at 11:00 Diphenhydramine HCl (Benadryl) 50 mg PRN QHS PRN PO INSOMNIA Last administered on 07/25/17 03:03; Start 07/23/17 at 11:00 Promethazine HCl 12.5 mg/Sodium Chloride 50.5 ml @ 151.5 mls/ hr PRN Q6HRS PRN IV NAUSEA/VOMITING; Start 07/23/17 at 11:00 Al Hydroxide/Mg Hydroxide (Mylanta Plus Xs) 30 ml PRN Q2HR PRN PO HEARTBURN / GAS; Start 07/23/17 at 11:00 Capsaicin (Zostrix) 1 dilcia TID TP Last administered on 07/25/17 21:00; Start 07/23/17 at 11:30 Polyethylene Glycol (miraLAX PACKET) 17 gm BID PO Last administered on 09:48; Start 07/23/17 at 21:00 Pantoprazole Sodium (Protonix) 40 mg DAILYAC PO Last administered on 08:43; Start 07/23/17 at 14:00 Bisacodyl (Dulcolax Tab) 5 mg 1X ONCE PO Last administered on 07/23/17 14:26 ; Start 07/23/17 at 13:30; Stop 07/23/17 at 13:31; Status DC Insulin Detemir (Levemir) 20 units QHS SQ Last administered on 07/25/17 21:11 ; Start 07/24/17 at 21:00 Magnesium Hydroxide (Milk Of Magnesia) 2,400 mg 1X ONCE PO Last administered on 07/24/17 11:46; Start 07/24/17 at 11:30; Stop 07/24/17 at 11:31; Status DC Ciprofloxacin (Cipro) 500 mg BID PO Last administered on 07/26/17 08:42; Start 07/25/17 at 09:00 Metronidazole (Flagyl) 500 mg Q8HRS PO Last administered on 07/26/17 05:33; Start 07/25/17 at 06:00 Linaclotide (Linzess) 145 mcg DAILY07 PO Last administered on 07/26/17 06:10 ; Start 07/25/17 at 09:30 Sodium Monofluorophosphate (Fleet Adult) 133 ml 1X ONCE AL ; Start 07/25/17 at 09:30; Stop 07/25/17 at 09:31; Status DC Active Scripts Active Reported Ibuprofen 400 Mg Tablet 400 Mg PO PRN Q6HRS PRN Proventil Hfa Inhaler (Albuterol Sulfate) 6.7 Gm Hfa.aer.ad 1 Puff IH PRN Q4HRS PRN Lantus Solostar (Insulin Glargine,Hum.rec.anlog) 100 Unit/1 Ml Insuln.pen 35 Unit SQ QHS Novolog Flexpen (Insulin Aspart) 100 Unit/1 Ml Insuln.pen 1 Unit SQ Lisinopril 10 Mg Tablet 1 Tab PO DAILY Aspir 81 (Aspirin) 81 Mg Tablet.dr 1 Tab PO DAILY Vitals/I & O Vital Sign - Last 24 Hours 07/25/17 07/25/17 07/25/17 07/25/17 11:00 11:51 15:26 19:00 Temp 98.2 98.1 97.7 98.2 98.1 97.7 Pulse 62 68 75 Resp 18 18 18 B/P (MAP) 115/65 (82) 95/53 (67) 138/63 (88) Pulse Ox 96 98 97 96 O2 Delivery Room Air Room Air Room Air Room Air 07/25/17 07/25/17 07/26/17 07/26/17 20:25 23:00 03:00 07:00 Temp 98.6 98.1 97.9 98.6 98.1 97.9 Pulse 71 68 67 Resp 19 19 18 B/P (MAP) 131/56 (81) 122/56 (78) 138/58 (84) Pulse Ox 94 95 92 O2 Delivery Room Air Room Air Room Air Room Air 07/26/17 08:43 Pulse 67 B/P (MAP) 138/58 Intake and Output 07/25/17 07/25/17 07/26/17 15:00 23:00 07:00 Intake Total 800 ml 1300 ml 795 ml Output Total 4 ml Balance 800 ml 1296 ml 795 ml TERMULO,RAHAT Y MD Jul 26, 2017 10:16
[2017-07-26 11:00] VITALS: BP 140/63
[2017-07-26 15:00] VITALS: BP 125/52
[2017-07-26 19:00] VITALS: BP 134/58
[2017-07-26] MEDS: INSULIN DETEMIR 300 UNITS/3 ML INSULN.PEN. SQ SCH (20:33)
[2017-07-26 23:00] VITALS: BP 130/57
[2017-07-27 03:00] VITALS: BP 129/48
[2017-07-27] MEDS: metroNIDAZOLE 500 MG TABLET PO SCH (05:30)
[2017-07-27 07:00] VITALS: BP 116/58
[2017-07-27] MEDS: INSULIN ASPART 300 UNITS/3 ML INSULN.PEN SQ SCH (08:00)
[2017-07-27] MEDS ORDERED: CIPR500T94 PO (08:36)
[2017-07-27] MEDS ORDERED: METR500T PO (08:36)
[2017-07-27 08:40] VITALS: BP 116/58
[2017-07-27] MEDS: DOXYCYCLINE HYCLATE 100 MG TABLET PO SCH (08:40)
[2017-07-27] MEDS: LISINOPRIL 10 MG TABLET PO SCH (08:40)
[2017-07-27] MEDS: CIPROFLOXACIN HCL 250 MG TABLET. PO SCH (08:41)
[2017-07-27] MEDS: CETIRIZINE HCL 10 MG TABLET. PO SCH (08:41)
[2017-07-27] MEDS: PANTOPRAZOLE 40 MG TABLET.DR. PO SCH (08:41)
[2017-07-27] MEDS: ASPIRIN ENTERIC COATED 81 MG TABLET.DR. PO SCH (08:41)
[2017-07-27] MEDS: FERROUS SULFATE 325 MG TABLET. PO SCH (08:41)
[2017-07-27] MEDS: CAPSAICIN 0.025% TOPICAL CREAM 60GM TUBE. TP SCH (08:42)
--- NOTE | 2017-07-27 09:46 | PDOC3 ---
Discharge Summary Visit Information Date of Admission: Jul 21, 2017 Date of Discharge: Jul 27, 2017 Admitting Diagnosis Comment: 1. Proctitis 2. Urinary distention 3. SIRS, leukocytosis, no sepsis 4. HTN DM2 insulin req - controlled 5. MIld PCM 6. Acute bronchitis stable 7. COnstipation now diarrhea Final Diagnosis Problems Medical Problems: (1) Abdominal pain Status: Acute (2) Proctitis Status: Acute Brief Hospital Course Allergies Allergies Coded Allergies Type Severity Reaction Last Updated Verified Sulfa (Sulfonamide Antibiotics) Allergy Intermediate 07/25/17 Yes cheese Allergy Intermediate 07/25/17 Yes walnut Allergy Intermediate 07/25/17 Yes Vital Signs Vital Signs Date Time Temp Pulse Resp B/P (MAP) Pulse Ox O2 Delivery O2 Flow Rate FiO2 07/27/17 08:40 70 116/58 07/27/17 07:00 98.1 18 94 Room Air 98.1 07/26/17 19:57 2.0 Lab Results Laboratory Tests Test 07/25/17 11:07 07/25/17 16:36 07/25/17 20:54 07/26/17 03:50 Glucose (Fingerstick) 156 mg/dL (70-99) 108 mg/dL (70-99) 198 mg/dL (70-99) Erythrocyte Sedimentation Rate 62 (0-25) Test 07/26/17 07:31 07/26/17 12:03 07/26/17 15:32 07/26/17 20:31 Glucose (Fingerstick) 112 mg/dL (70-99) 109 mg/dL (70-99) 106 mg/dL (70-99) 144 mg/dL (70-99) Test 07/27/17 07:18 Glucose (Fingerstick) 89 mg/dL (70-99) Laboratory Tests Test 07/26/17 12:03 07/26/17 15:32 07/26/17 20:31 07/27/17 07:18 Glucose (Fingerstick) 109 mg/dL (70-99) 106 mg/dL (70-99) 144 mg/dL (70-99) 89 mg/dL (70-99) Brief Hospital Course Ms. Marinelli is a 82 old AA female PCP John Guerin, admitted for proctitis, mild colitis, Stayed 7 days with us but around 3 days over due, She was ready to go home 3 days ago as WBC normal, no fever, no emesis etc already on PO flagyl and cipro but claims still weak - but PT says no PT needs and does nt feel well. Then initially was constipated and after days of bowel regimen went diarrhea so decided tos stay,. BArgained for 1 more day but after educn told her we need to dc, Requested pain meds, I faxed cipro an dflagyl to her pharamcy preferred Dw KENRICK Nobles [facility] , GS Prco: none time 34 mins Discharge Information Condition at Discharge: Improved, Stable Follow Up: Weeks (PCP ) Disposition/Orders: D/C to Home Scheduled Aspirin (Aspir 81), 1 TAB PO DAILY, (Reported) Insulin Glargine,Hum.rec.anlog (Lantus Solostar), 35 UNIT SQ QHS, (Reported) Lisinopril (Lisinopril), 1 TAB PO DAILY, (Reported) Scheduled PRN Albuterol Sulfate (Proventil Hfa Inhaler), 1 PUFF IH PRN Q4HRS PRN for FOR ASTHMA, (Reported) Ibuprofen (Ibuprofen), 400 MG PO PRN Q6HRS PRN for INFLAMMATION, (Reported) Miscellaneous Medications Insulin Aspart (Novolog Flexpen), 1 UNIT SQ, (Reported) RAHAT BERNSTEIN MD Jul 27, 2017 09:46
== END 2017-07-27 11:04 | disposition home or self-care (01) | DRG 394 ==
LOC: ER 20:35 → 5 NORTH 23:40
PROVIDERS: ADMIT Internal Medicine Hematology & Oncology; ATTEND Internal Medicine Hematology & Oncology
DX: K62.89 Other specified diseases of anus and rectum (principal); R65.10 Systemic inflammatory response syndrome (SIRS) of non-infectious origin without acute organ dysfunction; E11.649 Type 2 diabetes mellitus with hypoglycemia without coma; E44.1 Mild protein-calorie malnutrition; J20.9 Acute bronchitis, unspecified; K52.9 Noninfective gastroenteritis and colitis, unspecified; D64.9 Anemia, unspecified; J45.909 Unspecified asthma, uncomplicated; I10 Essential (primary) hypertension; M81.0 Age-related osteoporosis without current pathological fracture; J01.90 Acute sinusitis, unspecified; E78.5 Hyperlipidemia, unspecified; K59.00 Constipation, unspecified; Z90.49 Acquired absence of other specified parts of digestive tract; Z91.018 Allergy to other foods; Z88.2 Allergy status to sulfonamides; Z68.24 Body mass index [BMI] 24.0-24.9, adult; Z79.4 Long term (current) use of insulin
CPT/HCPCS: 36415; 74176; 80048; 80076; 81001; 82553; 82607; 82746; 82962; 83540; 83550; 83605; 83690; 84484; 85007; 85025; 85045; 85651; 87040; 87086; 93005; 94250; 94640; 94760; 96361; 96374; 96375; J0744; J1170; J1815; J2405; J3490; J7030; J7613; Q0163; 99285-25

== ENCOUNTER 2019-09-30 22:03 | Emergency (ER) | payer MEDICARE, MEDICAID ==
[~2019-09-30] VITALS: Ht 144.8 cm; Wt 52.0 kg
[~2019-09-30 22:03] MED LIST changes: +ASPI-482 PO; +CIPR500T94 PO; +IBUP-1027 PO; +INSU100I13 SQ; +INSU100I17 SQ; +LISI10TA2 PO; +METR500T PO; +PROVENTIL HFA6.7 GM IH; -REGADENOSON 0.4 MG/5 ML DISP.SYRIN. IV ONE
[2019-09-30 22:15] VITALS: BP 215/80
--- NOTE | 2019-09-30 22:30 | PHYS DOC ---
Past Medical History Past Medical History: Asthma, Diabetes-Type II, Hypertension, Other Additional Past Medical Histor: OSTEOPOROSIS (BETHANY MUNGUIA APRN) Past Surgical History: Cholecystectomy (BETHANY MUNGUIA APRN) Alcohol Use: None Drug Use: None (BETHANY MUNGUIA APRN) Attending Signature I have participated in the care of this patient and I have reviewed and agree with all pertinent clinical information above including history, exam, and recommendations. (ROBERTO AJ MD) Adult General Chief Complaint Chief Complaint: HEAD INJURY/TRAUMA HPI HPI Patient is a 84 year old female who presents with head trauma. The patient was at [facility] getting a pop and another one fell and hit her in the head about 45 minutes prior to arrival. The patient denies loss of consciousness, patient denies blood thinners. Patient denies any other complaints. Patient reports her pain as 6 out of 10 severity sharp. Complete ROS were reviewed and found to be within normal limits, except as documented in the HPI (BETHANY MUNGUIA APRN) Current Medications Current Medications Current Medications Medications (Trade) Dose Ordered Sig/José Miguel Start Time Stop Time Status Last Admin Dose Admin Acetaminophen (Tylenol) 650 mg 1X ONCE 09/30/19 23:00 09/30/19 23:01 DC 09/30/19 22:45 650 MG (ROBERTO AJ MD) Allergies Allergies Allergies Coded Allergies Type Severity Reaction Last Updated Verified Sulfa (Sulfonamide Antibiotics) Allergy Intermediate 07/25/17 Yes cheese Allergy Intermediate 07/25/17 Yes walnut Allergy Intermediate 07/25/17 Yes (ROBERTO AJ MD) Physical Exam Physical Exam Constitutional: Well developed, well nourished, no acute distress, non-toxic appearance. [] HENT: Normocephalic, atraumatic, bilateral external ears normal, oropharynx moist, no oral exudates, nose normal. [] Eyes: PERRLA, EOMI, conjunctiva normal, no discharge. [] Neck: Normal range of motion, no tenderness, supple, no stridor. [] Cardiovascular:Heart rate regular rhythm, no murmur [] Lungs & Thorax: Bilateral breath sounds clear to auscultation [] Neurologic: Alert and oriented X 3, normal motor function, normal sensory function, no focal deficits noted. [] Psychologic: Affect normal, judgement normal, mood normal. [] (BETHANY MUNGUIA APRN) Current Patient Data Vital Signs Vital Signs Date Time Temp Pulse Resp B/P (MAP) Pulse Ox O2 Delivery O2 Flow Rate FiO2 09/30/19 22:46 84 18 178/74 (108) 99 Room Air 09/30/19 22:15 98.1 98.1 (ROBERTO AJ MD) EKG EKG [] (BETHANY MUNGUIA APRN) Radiology/Procedures Radiology/Procedures [][facility] [address] [place] [address] IMAGING REPORT Signed PATIENT: TANJA FINE ACCOUNT: [id number] : 1935 LOCATION: ER AGE: 84 SEX: F EXAM STATUS: REG ER ORD. PHYSICIAN: BETHANY MUNGUIA APRN REASON: trauma PROCEDURE: CT HEAD WO CONTRAST CT HEAD INDICATION: Trauma COMPARISON: None Available. Exposure: One or more of the following individualized dose reduction techniques were utilized for this examination: 1. Automated exposure control 2. Adjustment of the mA and/or kV according to patient size 3. Use of iterative reconstruction technique TECHNIQUE: 5 mm contiguous axial images were obtained from the skull base to the vertex in both bone and soft tissue algorithm. FINDINGS: No abnormal attenuation within the brain parenchyma. Mild soft tissue swelling identified right forehead region likely secondary to contusion. No evidence of acute intracranial hemorrhage. No extra-axial fluid collections. No mass effect or midline shift. Ventricular size is appropriate. Basal cisterns are patent. No fractures identified.Alonzo-white differentiation is preserved.Globes and orbits are within normal limits. Paranasal sinuses and mastoid air cells are clear. IMPRESSION: 1. No acute intracranial findings. 2. Small right forehead contusion. Electronically signed by: Avila Mendenhall MD (09/30/2019 10:57 PM) [facility] DICTATED and SIGNED BY: AVILA MENDENHALL MD DATE: 09/30/19 2250 (BETHANY MUNGUIA APRN) Course & Med Decision Making Course & Med Decision Making Pertinent Labs and Imaging studies reviewed. (See chart for details) Will get a CT head and give Tylenol. CT head is negative. (BETHANY MUNGUIA APRN) Dragon Disclaimer Dragon Disclaimer This electronic medical record was generated, in whole or in part, using a voice recognition dictation system. (BETHANY MUNGUIA APRN) Departure Departure Impression: Primary Impression: Head injury due to trauma Disposition: HOME, SELF-CARE Condition: STABLE Referrals: FADUMO OLEA MD (PCP) Patient Instructions: Head Injury, Adult Additional Instructions: Thank you for visiting [facility]. We appreciate you trusting us with your care. If any additional problems come up don't hesitate to return to visit us. Please follow up with your primary care provider so they can plan ad ditional care if needed and know about the problem that you had. If symptoms worsen come back to the Emergency Department. Any concerning symptoms that start such as chest pain, shortness of air, weakness or numbness on one side of the body, running high fevers or any other concerning symptoms return to the ER. Problem Qualifiers Primary Impression: Head injury due to trauma Encounter type: initial encounter Qualified Codes: S09.90XA - Unspecified injury of head, initial encounter BETHANY MUNGUIA APRN Sep 30, 2019 22:30 ROBERTO AJ MD Oct 01, 2019 04:16
[2019-09-30] MEDS ORDERED: ACETAMINOPHEN 325 MG TABLET. PO ONE (23:00)
--- NOTE | 2019-09-30 23:00 | RAD ---
CT HEAD INDICATION: Trauma COMPARISON: None Available. Exposure: One or more of the following individualized dose reduction techniques were utilized for this examination: 1. Automated exposure control 2. Adjustment of the mA and/or kV according to patient size 3. Use of iterative reconstruction technique TECHNIQUE: 5 mm contiguous axial images were obtained from the skull base to the vertex in both bone and soft tissue algorithm. FINDINGS: No abnormal attenuation within the brain parenchyma. Mild soft tissue swelling identified right forehead region likely secondary to contusion. No evidence of acute intracranial hemorrhage. No extra-axial fluid collections. No mass effect or midline shift. Ventricular size is appropriate. Basal cisterns are patent. No fractures identified.Alonzo-white differentiation is preserved.Globes and orbits are within normal limits. Paranasal sinuses and mastoid air cells are clear. IMPRESSION: 1. No acute intracranial findings. 2. Small right forehead contusion. Electronically signed by: Avila Mendenhall MD (09/30/2019 10:57 PM) [facility]
== END 2019-09-30 23:20 | disposition home or self-care (01) ==
LOC: ER 22:03
DX: S09.90XA Unspecified injury of head, initial encounter (principal); J45.909 Unspecified asthma, uncomplicated; E11.9 Type 2 diabetes mellitus without complications; I10 Essential (primary) hypertension; Z88.2 Allergy status to sulfonamides; Z91.018 Allergy to other foods; W03.XXXA Other fall on same level due to collision with another person, initial encounter; Y93.89 Activity, other specified; Y92.89 Other specified places as the place of occurrence of the external cause; Y99.8 Other external cause status
CPT/HCPCS: 70450; 99284-25

== ENCOUNTER 2020-04-11 19:47 | Inpatient (IN) | payer MEDICARE, MEDICAID ==
[~2020-04-11] VITALS: Ht 149.9 cm; Wt 54.8 kg
[2020-04-11] MEDS ORDERED: IV NORMAL SALINE 1000ML BAG 1,000 ML IV SCH ×2 (20:46→23:15)
[2020-04-11] MEDS ORDERED: ONDANSETRON PF 4 MG/2 ML VIAL. IVP ONE (21:00)
[2020-04-11 21:07] LABS: BASO % 0 % (0-3); EOS # 0.1 x10^3/uL (0.0-0.7); EOS % 1 % (0-3); HEMATOCRIT 32.5 % (36.0-47.0); LYMPH # 0.3 x10^3/uL (1.0-4.8); LYMPH % 3 % (24-48); MEAN CORPUSCULAR HEMOGLOBIN 31 pg (25-35); MEAN CORPUSCULAR HGB CONC 34 g/dL (31-37); MEAN CORPUSCULAR VOLUME 91 fL (79-100); MONO # 0.7 x10^3/uL (0.0-1.1); MONO % 7 % (0-9); NEUT # 8.8 x10^3/uL (1.8-7.7); NEUT % 89 % (31-73); PLATELET COUNT 222 x10^3/uL (140-400); RED BLOOD COUNT 3.58 x10^6/uL (3.50-5.40); RED CELL DISTRIBUTION WIDTH 13.2 % (11.5-14.5); WHITE BLOOD COUNT 9.9 x10^3/uL (4.0-11.0)
[2020-04-11 21:16] LABS: CREATININE 1.5 mg/dL (0.6-1.0); GFR 40.1; POTASSIUM 4.5 mmol/L (3.5-5.1)
[2020-04-11 21:18] LABS: BILIRUBIN,URINE NEGATIVE (NEG); CLARITY,URINE CLOUDY; COLOR,URINE YELLOW; NITRITE,URINE NEGATIVE (NEG); PH,URINE 7.5 (<5.0-8.0); PROTEIN,URINE NEGATIVE (NEG-TRACE)
--- NOTE | 2020-04-11 21:19 | PHYS DOC ---
Past Medical History Past Medical History: Asthma, Diabetes-Type II, Hypertension, Other Additional Past Medical Histor: OSTEOPOROSIS Past Surgical History: Cholecystectomy Smoking Status: Never Smoker Alcohol Use: None Drug Use: None General Adult EDM: Chief Complaint: FEVER HPI: HPI: Patient is a 85 year old female who presents with a 1 day history of nausea and abdominal pain. Patient states she feels much better than she did earlier's evening and abdominal pain is minimal right now pain is located in the right lower quadrant and nonradiating. Patient denies any actual vomiting or diarrhea. Patient did not know she had a fever but was found to have a fever at triage. Patient denies any sick contacts cough or shortness of breath. Patient denies any dysuria. Pain was moderate in severity earlier and minimal currently. Pain is described as a discomfort. Review of Systems: Review of Systems: Constitutional: Has a fever but no chills Eyes: Denies change in visual acuity. [] HENT: Denies nasal congestion or sore throat. [] Respiratory: Denies cough or shortness of breath. [] Cardiovascular: Denies chest pain or edema. [] GI: Complains abdominal pain nausea but no vomiting diarrhea or blood in stool : Denies dysuria. [] Musculoskeletal: Denies back pain or joint pain. [] Integument: Denies rash. [] Neurologic: Denies headache, focal weakness or sensory changes. [] Endocrine: Denies polyuria or polydipsia. [] Lymphatic: Denies swollen glands. [] Psychiatric: Denies depression or anxiety. [] Heart Score: Risk Factors: Risk Factors: DM, Current or recent (<one month) smoker, HTN, HLP, family history of CAD, obesity. Risk Scores: Score 0 - 3: 2.5% MACE over next 6 weeks - Discharge Home Score 4 - 6: 20.3% MACE over next 6 weeks - Admit for Clinical Observation Score 7 - 10: 72.7% MACE over next 6 weeks - Early Invasive Strategies Current Medications: Current Medications Medications (Trade) Dose Ordered Sig/José Miguel Start Time Stop Time Status Last Admin Dose Admin Ondansetron HCl (Zofran) 4 mg 1X ONCE 04/11/20 21:00 04/11/20 21:01 DC 04/11/20 20:58 4 MG Sodium Chloride 1,000 ml @ 1,000 mls/hr Q1H 04/11/20 20:46 04/11/20 21:45 04/11/20 20:46 1,000 MLS/HR Allergies: Allergies: Allergies Coded Allergies Type Severity Reaction Last Updated Verified Sulfa (Sulfonamide Antibiotics) Allergy Intermediate 07/25/17 Yes cheese Allergy Intermediate 07/25/17 Yes walnut Allergy Intermediate 07/25/17 Yes Physical Exam: PE: Constitutional: Well developed, well nourished, no acute distress, non-toxic appearance. [] HENT: Normocephalic, atraumatic, bilateral external ears normal, no trismus nose normal. [] Eyes: PERRLA, EOMI, conjunctiva normal, no discharge. [] Neck: Normal range of motion, no tenderness, supple, no stridor. [] Cardiovascular:Heart rate regular rhythm, peripheral pulses intact cap refill brisk Lungs & Thorax: Bilateral breath sounds clear no respiratory distress Abdomen, soft, mild tenderness right lower quadrant without guarding or rebound, no masses, no pulsatile masses. [] Skin: Warm, dry, no erythema, no rash. [] Back: No tenderness, no CVA tenderness. [] Extremities: No tenderness, no cyanosis, no clubbing, ROM intact, no edema. [] Neurologic: Alert and oriented X 3, normal motor function, normal sensory fu nction, no focal deficits noted. [] Psychologic: Affect normal, judgement normal, mood normal. [] Current Patient Data: Labs: Laboratory Tests Test 04/11/20 20:55 White Blood Count 9.9 x10^3/uL (4.0-11.0) Red Blood Count 3.58 x10^6/uL (3.50-5.40) Hemoglobin 11.0 g/dL (12.0-15.5) L Hematocrit 32.5 % (36.0-47.0) L Mean Corpuscular Volume 91 fL (79-100) Mean Corpuscular Hemoglobin 31 pg (25-35) Mean Corpuscular Hemoglobin Concent 34 g/dL (31-37) Red Cell Distribution Width 13.2 % (11.5-14.5) Platelet Count 222 x10^3/uL (140-400) Neutrophils (%) (Auto) 89 % (31-73) H Lymphocytes (%) (Auto) 3 % (24-48) L Monocytes (%) (Auto) 7 % (0-9) Eosinophils (%) (Auto) 1 % (0-3) Basophils (%) (Auto) 0 % (0-3) Neutrophils # (Auto) 8.8 x10^3/uL (1.8-7.7) H Lymphocytes # (Auto) 0.3 x10^3/uL (1.0-4.8) L Monocytes # (Auto) 0.7 x10^3/uL (0.0-1.1) Eosinophils # (Auto) 0.1 x10^3/uL (0.0-0.7) Basophils # (Auto) 0.0 x10^3/uL (0.0-0.2) Sodium Level 138 mmol/L (136-145) Potassium Level 4.5 mmol/L (3.5-5.1) Chloride Level 102 mmol/L (98-107) Carbon Dioxide Level 26 mmol/L (21-32) Anion Gap 10 (6-14) Blood Urea Nitrogen 22 mg/dL (7-20) H Creatinine 1.5 mg/dL (0.6-1.0) H Estimated GFR (Cockcroft-Gault) 40.1 BUN/Creatinine Ratio 15 (6-20) Glucose Level 177 mg/dL (70-99) H Calcium Level 9.0 mg/dL (8.5-10.1) Total Bilirubin Pending Aspartate Amino Transferase (AST) Pending Alanine Aminotransferase (ALT) Pending Alkaline Phosphatase Pending Total Protein Pending Albumin Pending Albumin/Globulin Ratio Pending Lipase Pending Laboratory Tests 04/11/20 20:55 Laboratory Tests 04/11/20 20:55 Vital Signs: Vital Signs Date Time Temp Pulse Resp B/P (MAP) Pulse Ox O2 Delivery O2 Flow Rate FiO2 04/11/20 20:00 101.4 94 18 153/70 (97) 97 Room Air 101.4 EKG: EKG: EKG interpreted by me normal sinus rhythm with a rate of 91 normal axis normal intervals nonspecific ST changes [] Radiology/Procedures: Radiology/Procedures: [][facility] [address] [place], [place] [id number] IMAGING REPORT Signed PATIENT: TANJA FINE ACCOUNT: [id number] : 1935 LOCATION: ER AGE: 85 SEX: F EXAM STATUS: PRE ER ORD. PHYSICIAN: LISBETH VALIENTE MD REASON: ABD PAIN PROCEDURE: CT ABDOMEN PELVIS WO CONTRAST Exam: CT of abdomen and pelvis without contrast INDICATION: Abdominal pain TECHNIQUE: Sequential axial images through the abdomen and pelvis obtained without IV contrast. Sagittal and coronal reformatted images were reconstructed from the axial data and reviewed. Comparisons: 07/21/2017 FINDINGS: Heart size is normal. No pericardial effusion. Visualized lung bases are clear. No pleural effusion. Evaluation of solid organs is limited secondary to noncontrast technique. Liver, spleen, pancreas and adrenals are unremarkable. Gallbladder surgically absent. No perinephric inflammation or hydronephrosis. No renal or ureteral calculi are identified. Bladder is markedly distended. Uterus is nonenlarged. No abnormal adnexal mass. Few scattered diverticula noted in the sigmoid colon without evidence of acute diverticulitis. Remainder of the large and small bowel are unremarkable. Appendix is normal. No free intra-abdominal air or fluid. No obstruction. Abdominal aorta has a normal course and caliber. No enlarged abdominal lymph nodes are identified. No suspicious osseous lesions or acute fractures. IMPRESSION: 1. Markedly distended bladder. Correlate for bladder outlet obstruction. 2. Diverticulosis without evidence of acute diverticulitis. Exposure: One or more of the following in the visualized dose reduction techniques were utilized for this examination: 1. Automated exposure control 2. Adjustment of the MA and/or KV according to patient size 3. Use of iterative of reconstructive technique Electronically signed by: Gurvinder Izaguirre MD (04/11/2020 9:33 PM) [id number] DICTATED and SIGNED BY: GURVINDER IZAGUIRRE MD DATE: 04/11/20 2133 [facility] [address] [place], [place] [id number] IMAGING REPORT Signed PATIENT: TANJA FINE ACCOUNT: [id number] : 1935 LOCATION: ER AGE: 85 SEX: F EXAM STATUS: REG ER ORD. PHYSICIAN: LISBETH VALIENTE MD REASON: FEVER PROCEDURE: PORTABLE CHEST 1V EXAM: AP View of the chest DATE: 04/11/2020 9:54 PM INDICATION: Fever COMPARISON: No Prior FINDINGS: The heart is not enlarged. Mediastinal and hilar contours are normal. No lobar consolidation. Interstitial prominence bilaterally. No pleural effusion or pneumothorax. IMPRESSION: Mild interstitial prominence bilaterally may be seen with atypical infectious or inflammatory process. No lobar consolidation. Electronically signed by: Easton Espinoza MD (04/11/2020 10:44 PM) [facility] DICTATED and SIGNED BY: EASTON ESPINOZA MD DATE: 04/11/20 1224 Course & Med Decision Making: Course & Med Decision Making Pertinent Labs and Imaging studies reviewed. (See chart for details) [] 85-year-old female presents with nausea and right lower quadrant pain and was found to have a fever here. Abdominal exam reveals some right side abdominal t enderness therefore CT was done which does not reveal any surgical pathology. Patient has a urinary tract infection and will get IV antibiotics and will be admitted. Patient will need a coronavirus swab as she has increased interstitial markings on her x-ray. Patient will be admitted to Dr. Hair of the hospitalist service for further evaluation and treatment. Dragon Disclaimer: Dragon Disclaimer: This electronic medical record was generated, in whole or in part, using a voice recognition dictation system. Departure Departure Impression: Primary Impression: Fever Additional Impressions: Abdominal pain UTI (urinary tract infection) Disposition: ADMITTED INPATIENT Admitting Physician: MICHELLE (WIL) Condition: STABLE Referrals: FADUMO OLEA MD (PCP) Justicifation of Admission Dx: Justifications for Admission: Justification of Admission Dx: Yes LISBETH VALIENTE MD Apr 11, 2020 21:19
[2020-04-11 21:24] LABS: ALBUMIN 3.6 g/dL (3.4-5.0); ALBUMIN/GLOBULIN RATIO 0.8 (1.0-1.7); TOTAL BILIRUBIN 0.4 mg/dL (0.2-1.0); TOTAL PROTEIN 8.3 g/dL (6.4-8.2)
[2020-04-11 21:25] LABS: BACTERIA,URINE MANY /HPF (0-FEW); WBC,URINE >40 /HPF (0-4)
[2020-04-11 21:26] LABS: SQUAMOUS EPITHELIAL CELL,UR MOD /LPF
--- NOTE | 2020-04-11 21:36 | RAD ---
Exam: CT of abdomen and pelvis without contrast INDICATION: Abdominal pain TECHNIQUE: Sequential axial images through the abdomen and pelvis obtained without IV contrast. Sagittal and coronal reformatted images were reconstructed from the axial data and reviewed. Comparisons: 07/21/2017 FINDINGS: Heart size is normal. No pericardial effusion. Visualized lung bases are clear. No pleural effusion. Evaluation of solid organs is limited secondary to noncontrast technique. Liver, spleen, pancreas and adrenals are unremarkable. Gallbladder surgically absent. No perinephric inflammation or hydronephrosis. No renal or ureteral calculi are identified. Bladder is markedly distended. Uterus is nonenlarged. No abnormal adnexal mass. Few scattered diverticula noted in the sigmoid colon without evidence of acute diverticulitis. Remainder of the large and small bowel are unremarkable. Appendix is normal. No free intra-abdominal air or fluid. No obstruction. Abdominal aorta has a normal course and caliber. No enlarged abdominal lymph nodes are identified. No suspicious osseous lesions or acute fractures. IMPRESSION: 1. Markedly distended bladder. Correlate for bladder outlet obstruction. 2. Diverticulosis without evidence of acute diverticulitis. Exposure: One or more of the following in the visualized dose reduction techniques were utilized for this examination: 1. Automated exposure control 2. Adjustment of the MA and/or KV according to patient size 3. Use of iterative of reconstructive technique Electronically signed by: Gurvinder Linares MD (04/11/2020 9:33 PM) [id number]
[2020-04-11] MEDS ORDERED: cefTRIAXone IV Push 1 GM VIAL. IVP ONE (22:15)
--- NOTE | 2020-04-11 22:47 | RAD ---
EXAM: AP View of the chest DATE: 04/11/2020 9:54 PM INDICATION: Fever COMPARISON: No Prior FINDINGS: The heart is not enlarged. Mediastinal and hilar contours are normal. No lobar consolidation. Interstitial prominence bilaterally. No pleural effusion or pneumothorax. IMPRESSION: Mild interstitial prominence bilaterally may be seen with atypical infectious or inflammatory process. No lobar consolidation. Electronically signed by: Easton Castro MD (04/11/2020 10:44 PM) JUDITH
[2020-04-11] MEDS ORDERED: ONDANSETRON PF 4 MG/2 ML VIAL. IV PRN (23:15)
[2020-04-12 02:24] VITALS: BP 135/91
[2020-04-12 07:00] VITALS: BP 102/57
[2020-04-12] MEDS ORDERED: ASPIRIN ENTERIC COATED 81 MG TABLET.DR. PO SCH (09:00)
[2020-04-12] MEDS ORDERED: DEXTROSE 50% 25 GM / 50ML DISP.SYRIN. IV PRN (09:00)
[2020-04-12] MEDS ORDERED: LISINOPRIL 10 MG TABLET PO SCH (09:00)
[2020-04-12] MEDS ORDERED: IV NORMAL SALINE 1000ML BAG 1,000 ML IV ONE (09:00)
[2020-04-12] MEDS ORDERED: cefTRIAXone IV Push 1 GM VIAL. IVP SCH (09:00)
[2020-04-12] MEDS ORDERED: CIPR250T30 PO (09:09)
--- NOTE | 2020-04-12 09:14 | PDOC1 ---
History and Physical Date of Admission Date of Admission DATE: 04/12/20 TIME: 09:11 Source Source: Chart review, Patient History of Present Illness History of Present Illness Ms. Marinelli, is a 85 year old female who presents with a 1 day history of nausea and abdominal pain. She vomited once and her family brought her to the ER. Patient states she feels much better than she did earlier's evening and abdominal pain is minimal right now pain is located in the right lower quadrant and nonradiating. pain was 4/10 and may be gone She has A UTI, was given abx, and feels much better this AM Patient denies any diarrhea. she had no symptoms of fever, but low grade temp in ER. Patient denies any sick contacts cough or shortness of breath. Past Medical History Cardiovascular: HTN, Hyperlipidemia Endocrine: Diabetes Past Surgical History Past Surgical History: Cholecystectomy Family History Family History: No Significant Social History Smoke: No ALCOHOL: none Drugs: None Current Problem List Problem List Problems Medical Problems: (1) Fever Status: Acute Current Medications Current Medications Current Medications Sodium Chloride 1,000 ml @ 1,000 mls/hr Q1H IV Last administered on 04/11/20at 20:46; Start 04/11/20 at 20:46; Stop 04/11/20 at 21:45; Status DC Ondansetron HCl (Zofran) 4 mg 1X ONCE IVP Last administered on 04/11/20at 20:58; Start 04/11/20 at 21:00; Stop 04/11/20 at 21:01; Status DC Ceftriaxone Sodium (Rocephin) 1 gm 1X ONCE IVP Last administered on 04/11/20at 23:34; Start 04/11/20 at 22:15; Stop 04/11/20 at 22:16; Status DC Ondansetron HCl (Zofran) 4 mg PRN Q8HRS PRN IV NAUSEA/VOMITING; Start 04/11/20 at 23:15; Stop 04/12/20 at 06:11; Status DC Sodium Chloride 1,000 ml @ 125 mls/hr Q8H IV ; Start 04/11/20 at 23:15; Stop 04/12/20 at 06:11; Status DC Ceftriaxone Sodium (Rocephin) 1 gm Q24H IVP ; Start 04/12/20 at 09:00 Sodium Chloride 1,000 ml @ 100 mls/hr 1X ONCE IV ; Start 04/12/20 at 09:00; Stop 04/12/20 at 18:59 Aspirin (Ecotrin) 81 mg DAILY PO ; Start 04/12/20 at 09:00 Lisinopril (Prinivil) 10 mg DAILY PO ; Start 04/12/20 at 09:00 Albuterol Sulfate (Ventolin Hfa) 1 puff PRN Q4HRS PRN INH WHEEZES; Start 04/12/20 at 12:00 Insulin Glargine (Lantus Syringe) 35 unit QHS SQ ; Start 04/12/20 at 21:00 Insulin Human Lispro (HumaLOG) 0-9 UNITS TIDWMEALS SQ ; Start 04/12/20 at 12:00 Dextrose (Dextrose 50%-Water Syringe) 12.5 gm PRN Q15MIN PRN IV SEE COMMENTS; Start 04/12/20 at 09:00 Active Scripts Active Flagyl (Metronidazole) 500 Mg Tablet 500 Mg PO TID 7 Days Cipro (Ciprofloxacin Hcl) 500 Mg Tablet 1 Tab PO BID Reported Ibuprofen 400 Mg Tablet 400 Mg PO PRN Q6HRS PRN Proventil Hfa Inhaler (Albuterol Sulfate) 6.7 Gm Hfa.aer.ad 1 Puff IH PRN Q4HRS PRN Lantus Solostar (Insulin Glargine,Hum.rec.anlog) 100 Unit/1 Ml Insuln.pen 35 Unit SQ QHS Novolog Flexpen (Insulin Aspart) 100 Unit/1 Ml Insuln.pen 1 Unit SQ Lisinopril 10 Mg Tablet 1 Tab PO DAILY Aspir 81 (Aspirin) 81 Mg Tablet.dr 1 Tab PO DAILY Allergies Allergies: Coded Allergies: Sulfa (Sulfonamide Antibiotics) (Verified Allergy, Intermediate, 07/25/17) cheese (Verified Allergy, Intermediate, 07/25/17) walnut (Verified Allergy, Intermediate, 07/25/17) ROS General: No: Chills, Night Sweats, Fatigue, Malaise, Appetite, Other PSYCHOLOGICAL ROS: No: Anxiety, Behavioral Disorder, Concentration difficultie, Decreased libido, Depression, Disorientation, Hallucinations, Hostility, Irritablity, Memory difficulties, Mood Swings, Obsessive thoughts, Physical abuse, Sexual abuse, Sleep disturbances, Suicidal ideation, Other Eyes: No Blurry vision, No Decreased vision, No Double vision, No Dry eyes, No Excessive tearing, No Eye Pain, No Itchy Eyes, No Loss of vision, No Photophobia, No Scotomata, No Uses contacts, No Uses glasses, No Other Respiratory: No: Cough, Hemoptysis, Orthopnea, Pleuritic Pain, Shortness of breath, SOB with excertion, Sputum Changes, Stridor, Tachypnea, Wheezing, Other Cardiovascular: No Palpitations, No Orthopnea, No Paroxysmal Noc. Dyspnea, No Edema, No Lt Headedness, No Other Gastrointestinal: Yes Nausea, Yes Abdominal Pain (better already); No Vomiting, No Diarrhea, No Constipation, No Melena, No Hematochezia, No Other Genitourinary: No Dysuria, No Frequency, No Incontinence, No Hematuria, No Retention, No Discharge, No Urgency, No Pain, No Flank Pain, No Other, No , No , No , No , No , No , No Musculoskeletal: Yes Joint Stiffness; No Gait Disturbance, No Joint Pain, No Joint Swelling, No Muscle Pain, No Muscular Weakness, No Pain In:, No Swelling In:, No Other Neurological: No Behavorial Changes, No Bowel/Bladder ControlChng, No Confusion, No Dizziness, No Gait Disturbance, No Headaches, No Impaired Coord/balance, No Memory Loss, No Numbness/Tingling, No Seizures, No Speech Problems, No Tremors, No Visual Changes, No Weakness, No Other Skin: Yes Dry Skin; No Eczema, No Hair Changes, No Lumps, No Mole Changes, No Mottling, No Nail Changes, No Pruritus, No Rash, No Skin Lesion Changes, No Other, No Acne Physical Exam General: Alert, Oriented X3, Cooperative, No acute distress HEENT: PERRLA, EOMI Lungs: Clear to auscultation, Normal air movement Heart: S1S2, RRR, no gallops Extremities: No clubbing, Normal pulses Skin: No breakdown Neuro: Normal speech, Normal tone, Sensation intact Psych/Mental Status: Mental status NL, Mood NL Vitals Vitals Vital Signs Date Time Temp Pulse Resp B/P (MAP) Pulse Ox O2 Delivery O2 Flow Rate FiO2 04/12/20 07:00 97.8 80 17 102/57 (72) 98 Room Air 97.8 Labs Labs Laboratory Tests Test 04/11/20 20:55 04/11/20 21:07 8/11/20 08:26 White Blood Count 9.9 x10^3/uL (4.0-11.0) Red Blood Count 3.58 x10^6/uL (3.50-5.40) Hemoglobin 11.0 g/dL (12.0-15.5) Hematocrit 32.5 % (36.0-47.0) Mean Corpuscular Volume 91 fL (79-100) Mean Corpuscular Hemoglobin 31 pg (25-35) Mean Corpuscular Hemoglobin Concent 34 g/dL (31-37) Red Cell Distribution Width 13.2 % (11.5-14.5) Platelet Count 222 x10^3/uL (140-400) Neutrophils (%) (Auto) 89 % (31-73) Lymphocytes (%) (Auto) 3 % (24-48) Monocytes (%) (Auto) 7 % (0-9) Eosinophils (%) (Auto) 1 % (0-3) Basophils (%) (Auto) 0 % (0-3) Neutrophils # (Auto) 8.8 x10^3/uL (1.8-7.7) Lymphocytes # (Auto) 0.3 x10^3/uL (1.0-4.8) Monocytes # (Auto) 0.7 x10^3/uL (0.0-1.1) Eosinophils # (Auto) 0.1 x10^3/uL (0.0-0.7) Basophils # (Auto) 0.0 x10^3/uL (0.0-0.2) Sodium Level 138 mmol/L (136-145) Potassium Level 4.5 mmol/L (3.5-5.1) Chloride Level 102 mmol/L (98-107) Carbon Dioxide Level 26 mmol/L (21-32) Anion Gap 10 (6-14) Blood Urea Nitrogen 22 mg/dL (7-20) Creatinine 1.5 mg/dL (0.6-1.0) Estimated GFR (Cockcroft-Gault) 40.1 BUN/Creatinine Ratio 15 (6-20) Glucose Level 177 mg/dL (70-99) Lactic Acid Level 1.9 mmol/L (0.4-2.0) Calcium Level 9.0 mg/dL (8.5-10.1) Total Bilirubin 0.4 mg/dL (0.2-1.0) Aspartate Amino Transf (AST/SGOT) 20 U/L (15-37) Alanine Aminotransferase (ALT/SGPT) 20 U/L (14-59) Alkaline Phosphatase 142 U/L (46-116) Total Protein 8.3 g/dL (6.4-8.2) Albumin 3.6 g/dL (3.4-5.0) Albumin/Globulin Ratio 0.8 (1.0-1.7) Lipase 61 U/L (73-393) Urine Collection Type Void Urine Color Yellow Urine Clarity Cloudy Urine pH 7.5 (<5.0-8.0) Urine Specific [place] 1.010 (1.000-1.030) Urine Protein Negative mg/dL (NEG-TRACE) Urine Glucose (UA) Negative mg/dL (NEG) Urine Ketones (Stick) Negative mg/dL (NEG) Urine Blood Small (NEG) Urine Nitrite Negative (NEG) Urine Bilirubin Negative (NEG) Urine Urobilinogen Dipstick 1.0 mg/dL (0.2 mg/dL) Urine Leukocyte Esterase Large (NEG) Urine RBC 1-2 /HPF (0-2) Urine WBC >40 /HPF (0-4) Urine Squamous Epithelial Cells Mod /LPF Urine Bacteria Many /HPF (0-FEW) Glucose (Fingerstick) 95 mg/dL (70-99) Laboratory Tests Test 04/11/20 20:55 04/11/20 21:07 04/12/20 08:26 White Blood Count 9.9 x10^3/uL (4.0-11.0) Red Blood Count 3.58 x10^6/uL (3.50-5.40) Hemoglobin 11.0 g/dL (12.0-15.5) Hematocrit 32.5 % (36.0-47.0) Mean Corpuscular Volume 91 fL (79-100) Mean Corpuscular Hemoglobin 31 pg (25-35) Mean Corpuscular Hemoglobin Concent 34 g/dL (31-37) Red Cell Distribution Width 13.2 % (11.5-14.5) Platelet Count 222 x10^3/uL (140-400) Neutrophils (%) (Auto) 89 % (31-73) Lymphocytes (%) (Auto) 3 % (24-48) Monocytes (%) (Auto) 7 % (0-9) Eosinophils (%) (Auto) 1 % (0-3) Basophils (%) (Auto) 0 % (0-3) Neutrophils # (Auto) 8.8 x10^3/uL (1.8-7.7) Lymphocytes # (Auto) 0.3 x10^3/uL (1.0-4.8) Monocytes # (Auto) 0.7 x10^3/uL (0.0-1.1) Eosinophils # (Auto) 0.1 x10^3/uL (0.0-0.7) Basophils # (Auto) 0.0 x10^3/uL (0.0-0.2) Sodium Level 138 mmol/L (136-145) Potassium Level 4.5 mmol/L (3.5-5.1) Chloride Level 102 mmol/L (98-107) Carbon Dioxide Level 26 mmol/L (21-32) Anion Gap 10 (6-14) Blood Urea Nitrogen 22 mg/dL (7-20) Creatinine 1.5 mg/dL (0.6-1.0) Estimated GFR (Cockcroft-Gault) 40.1 BUN/Creatinine Ratio 15 (6-20) Glucose Level 177 mg/dL (70-99) Lactic Acid Level 1.9 mmol/L (0.4-2.0) Calcium Level 9.0 mg/dL (8.5-10.1) Total Bilirubin 0.4 mg/dL (0.2-1.0) Aspartate Amino Transf (AST/SGOT) 20 U/L (15-37) Alanine Aminotransferase (ALT/SGPT) 20 U/L (14-59) Alkaline Phosphatase 142 U/L (46-116) Total Protein 8.3 g/dL (6.4-8.2) Albumin 3.6 g/dL (3.4-5.0) Albumin/Globulin Ratio 0.8 (1.0-1.7) Lipase 61 U/L (73-393) Urine Collection Type Void Urine Color Yellow Urine Clarity Cloudy Urine pH 7.5 (<5.0-8.0) Urine Specific [place] 1.010 (1.000-1.030) Urine Protein Negative mg/dL (NEG-TRACE) Urine Glucose (UA) Negative mg/dL (NEG) Urine Ketones (Stick) Negative mg/dL (NEG) Urine Blood Small (NEG) Urine Nitrite Negative (NEG) Urine Bilirubin Negative (NEG) Urine Urobilinogen Dipstick 1.0 mg/dL (0.2 mg/dL) Urine Leukocyte Esterase Large (NEG) Urine RBC 1-2 /HPF (0-2) Urine WBC >40 /HPF (0-4) Urine Squamous Epithelial Cells Mod /LPF Urine Bacteria Many /HPF (0-FEW) Glucose (Fingerstick) 95 mg/dL (70-99) VTE Prophylaxis Ordered VTE Prophylaxis Devices: No VTE Pharmacological Prophylaxi: Yes Assessment/Plan Assessment/Plan acute vasomotor nephropathy, will hydrate and recheck labs, stop ibuprofen, f/u labs next week with primary care Dm2, on insulin only, good control UTI, sepsis for admit, better now pt admitted to the COVID -19 unit, and seen with PPE,, patient feels welll, no 02 requirement, has eaten and can walk, will DC home MICHAEL LUCAS MD Apr 12, 2020 09:14
[2020-04-12] MEDS ORDERED: IV NORMAL SALINE 500ML BAG 500 ML IV ONE (09:15)
[2020-04-12 10:50] VITALS: BP 118/60
[2020-04-12 11:43] LABS: CALCIUM 7.8 mg/dL (8.5-10.1); CREATININE 1.4 mg/dL (0.6-1.0); GFR 43.5; POTASSIUM 4.6 mmol/L (3.5-5.1)
[2020-04-12] MEDS ORDERED: INSULIN LISPRO 300 UNITS/3 ML VIAL. SQ SCH (12:00)
[2020-04-12] MEDS ORDERED: ALBUTEROL SULFATE 8GM INHALER. INH PRN (12:00)
[2020-04-12 15:00] VITALS: BP 120/64
--- NOTE | 2020-04-12 17:18 | NUR ---
SW following. Spoke with RN and reviewed chart. Pt from home. Pt to discharge home today self-care. No SW needs per RN.
--- NOTE | 2020-04-12 18:47 | NUR ---
Discharge Note: TANJA FINE6 [facility] Discharge instructions and discharge home medications reviewed with Patient and a copy given. All questions have been answered and understanding verbalized. The following instructions and handouts were given: patient visit report, medication information, education. Discontinued lines and drains: peripheral IV, tip intact. Patient discharged to home with self care via private vehicle. Patient left unit awake, in stable condition, with all personal belongings.
[2020-04-12] MEDS ORDERED: INSULIN GLARGINE SYRINGE. SQ SCH (21:00)
[2020-04-12] MEDS ORDERED: LACTOBACILLUS RHAMNOSUS GG 1 CAPSULE. PO SCH (21:00)
== END 2020-04-12 18:15 | disposition home or self-care (01) | DRG 871 ==
LOC: ER 19:47 → 1 WEST ICU 23:08 → 6 SOUTH 04-12 00:41
PROVIDERS: ADMIT Internal Medicine; ATTEND Internal Medicine
DX: A41.9 Sepsis, unspecified organism (principal); N17.0 Acute kidney failure with tubular necrosis; N39.0 Urinary tract infection, site not specified; E11.9 Type 2 diabetes mellitus without complications; E78.5 Hyperlipidemia, unspecified; I10 Essential (primary) hypertension; J45.909 Unspecified asthma, uncomplicated; Z20.828 Contact with and (suspected) exposure to other viral communicable diseases; K57.90 Diverticulosis of intestine, part unspecified, without perforation or abscess without bleeding; M81.0 Age-related osteoporosis without current pathological fracture; Z79.4 Long term (current) use of insulin; Z79.899 Other long term (current) drug therapy; Z90.49 Acquired absence of other specified parts of digestive tract; Z88.2 Allergy status to sulfonamides; Z91.018 Allergy to other foods
CPT/HCPCS: 36415; 71045; 74176; 80048; 80053; 81001; 82962; 83605; 83690; 85025; 87040; 87086; 96361; 96374; 96375; 99285; J0696; J1815; J2405; J7030; J7040; G0378; U0003-CS